=== PATIENT | female | born 1930 | race Caucasian/White ===

== ENCOUNTER 2018-02-28 11:08 | Inpatient (IN) | payer OTHER ==
[2018-02-28 11:20] VITALS: BMI 22.1
--- NOTE | 2018-02-28 12:24 | PDOC ---
History of Present Illness - General Chief Complaint: Respiratory Stated Complaint: RESPIRATORY Time Seen by Provider: 02/28/18 11:39 - History of Present Illness Initial Comments: 02/28/18 13:03 87 year old female with a PMH of HTN, HLD presents to our ED c/o 1 week h/o productive (whitish sputum) cough, chest tightness, dyspnea on exertion as well as subjective fevers/chills. Patient notes she was evaluated by her PMD, Dr. Han, two weeks previous at which time she was treated for a viral URI as well as a UTI. Patient states she was treated with Bactrim for the UTI however cannot recall the name of the antibiotic she was prescribed for the URI. Patient notes she completed the entire antibiotic course of both medications. ROS is positive for decreased PO intake over the last 2 weeks as well as B/L foot swelling Past History - Past Medical History Allergies/Adverse Reactions: Allergies Allergy/AdvReac Type Severity Reaction Status Date / Time Sulfa (Sulfonamide Allergy Verified 02/28/18 11:13 Antibiotics) sulfa Allergy Uncoded 02/28/18 11:13 Home Medications: Ambulatory Orders Acetaminophen [Tylenol .Extra-Strength -] 500 mg PO Q6H PRN 02/17/15 Cholecalciferol (Vitamin D3) [Vitamin D] 1,000 unit PO DAILY 02/17/15 Simvastatin 10 mg PO DAILY 02/17/15 Verapamil HCl [Verapamil ER] 240 mg PO DAILY 02/17/15 Losartan Potassium [Cozaar -] 50 mg PO DAILY 02/28/18 Montelukast Sodium [Singulair] 10 mg PO HS 02/28/18 COPD: No HTN: Yes Hypercholesterolemia: Yes Kidney Stones: Yes (lithotripsy) - Suicide/Smoking/Psychosocial Hx Smoking History: Never smoked Hx Alcohol Use: No Substance Use Type: None Review of Systems - Review of Systems Constitutional: No: Chills, Fever HEENTM: No: Recent change in vision Respiratory: Yes: SOB with Exertion, Productive cough Cardiac (ROS): Yes: Chest Tightness. No: Chest Pain, Edema, Lightheadedness, Palpitations ABD/GI: Yes: Poor Appetite, Poor Fluid Intake. No: Constipated, Diarrhea, Nausea, Vomiting : No: Burning, Dysuria Neurological: No: Headache, Numbness Psychiatric: No: Anxiety, Depression *Physical Exam - Vital Signs Last Vital Signs Temp Pulse Resp BP Pulse Ox 98.6 F 125 H 20 179/95 95 02/28/18 11:13 02/28/18 11:13 02/28/18 11:13 02/28/18 11:13 02/28/18 11:13 - Physical Exam Comments: 02/28/18 19:59 GENERAL: Awake, alert, and fully oriented, in no acute distress HEAD: No signs of trauma EYES: PERRLA, EOMI, sclera anicteric, conjunctiva clear NECK: Nontender, no stepoffs, Normal ROM, supple, no lymphadenopathy, JVD, or masses LUNGS: Breath sounds equal, clear to auscultation bilaterally, however overall decreased No wheezes, and no crackles HEART: Regular rate and rhythm, normal S1 and S2, no murmurs, rubs or gallops ABDOMEN: Soft, nontender, normoactive bowel sounds. No guarding, no rebound. No masses EXTREMITIES: B/L 2+ pedal edema; 2+ pedal pulses, No clubbing or cyanosis. No cords, erythema, or tenderness NEUROLOGICAL: Cranial nerves II through XII intact. SKIN: Warm, Dry, normal turgor, no rashes or lesions noted. ED Treatment Course - LABORATORY CBC & Chemistry Diagram: 02/28/18 12:25 02/28/18 12:25 Medical Decision Making - Medical Decision Making 02/28/18 13:28 87 year old female with volume overload on physical exam presents with chest tightness and exertional dyspnea. Tachycardic and Hypoxic @ presentation. DDx includes CHF, r/o ACS, PNA, PE. Will obtain basic labs, Troponin, BNP, CXR. 02/28/18 13:29 BNP 845. Patient breathing comfortably on 2 L NC - repeat VS @ bedside: SpO2 100% on 2L NC. HR 104, BP 139/99. ECG shows NSR HR 106, no deviations, normal intervals, no BERNARD/STD, some downsloping T segments in V2 - c/w ECG in 2014 - overall non-ischemic ECG 02/28/18 13:32 Wet read of CXR shows B/L pleural effusions -- will confirm with U/S Bedside U/S shows B/L pleural effusions + air brochgrams @ base 02/28/18 14:08 Patient likely has new onset CHF -- will require further evaluation including COLIN. Dr. Han (PMD) paged for admission. Patient and patient's son @ counseled on POC. 02/28/18 14:12 Case d/w Dr. Han - agrees that hypoxia, tachycardia likely 2/2 to pleural effusions, less likely PE. Will continue to monitor - 20 IV Lasix + Promethazine for cough. SpO2 98-100% on 2L NC, HR 96. Will continue to monitor while in ED. 02/28/18 19:56 Patient transferred to inpatient medicine floor. *DC/Admit/Observation/Transfer Diagnosis at time of Disposition: Shortness of breath - Discharge Dispostion Condition at time of disposition: Fair Admit: Yes - Referrals - Patient Instructions - Post Discharge Activity
[2018-02-28 12:29] LABS: BASO % 0.5 % (0-2.0); EOS % 0.2 % (0-4.5); HEMATOCRIT 42.5 % (32.4-45.2); HEMOGLOBIN 14.1 GM/dL (10.7-15.3); LYMPH % 5.3 % (8-40); MCH 32.8 pg (25.7-33.7); MCHC 33.3 g/dl (32.0-36.0); MEAN CELL VOLUME 98.4 fl (80-96); MEAN PLT VOLUME 9.1 fl (7.5-11.1); PLATELET COUNT 381 K/MM3 (134-434); RBC 4.31 M/mm3 (3.60-5.2); RDW 13.9 % (11.6-15.6); WHITE BLOOD COUNT 10.7 K/mm3 (4.0-10.0)
[2018-02-28 12:56] LABS: ALBUMIN 3.4 g/dl (3.4-5.0); ANION GAP 8 (8-16); BILIRUBIN,TOTAL 0.3 mg/dL (0.2-1.0); BLOOD UREA NITROGEN 17 mg/dL (7-18); CALCIUM 8.9 mg/dL (8.5-10.1); CHLORIDE 104 mmol/L (98-107); CO2 28 mmol/L (21-32); CREATININE 0.9 mg/dL (0.55-1.02); GLUCOSE,RANDOM 113 mg/dL (74-106); POTASSIUM 4.4 mmol/L (3.5-5.1); SGOT/AST 41 U/L (15-37); SODIUM 140 mmol/L (136-145); TOT PROT 7.1 g/dl (6.4-8.2)
[2018-02-28 13:09] LABS: ALK PHOS 93 U/L (45-117); N-TERMINAL BNP 865.24 pg/ml (5-450); SGPT/ALT 26 U/L (12-78)
--- NOTE | 2018-02-28 13:30 | PDOC ---
Attending Attestation - Resident Resident Name: Laila Chowdhuryica - ED Attending Attestation I have performed the following: I have examined & evaluated the patient, The case was reviewed & discussed with the resident, I agree w/resident's findings & plan - HPI HPI: 02/28/18 13:26 87-year-old female with history of hypertension presents with about 7-10 days of progressive shortness of breath, orthopnea, cough with white sputum, and foot swelling. Patient previously had URI about 2 weeks ago treated with a Z- Shailesh by Dr. Han, her respiratory symptoms improved temporarily but then the above constellation of symptoms began. Admits to some chest tightness, no fevers or chills. - Physicial Exam PE: 02/28/18 13:27 Tachycardia, O2 sat low on room air, improves on oxygen Well-appearing elderly woman seated in stretcher, speaking full sentences No JVD Lungs are overall clear, question slightly decreased breath sounds at the right base Abdomen benign Positive bilateral edema to the ankles - Medical Decision Making 02/28/18 13:28 Patient seen and evaluated with the resident. I agree with the overall evaluation, assessment, and management with the following summary of visit: 87-year-old female with evidence of volume overload over the last week with intermittent chest pain, all following recent URI. Presentation seems most concerning for CHF exacerbation, rule out superimposed pulmonary/infectious pathology, PE is on the differential. Labs, urinalysis Chest x-ray, EKG Admission for further cardiac workup Heart Score/ECG Review #1 ECG reviewed & interpreted by me at: 11:45 General ECG Interpretation: Sinus Rhythm, Normal Rate (106), Normal Intervals ( qtc 427), No acute ischemic changes (Slightly downsloping in ST segment unchanged from 2015,)
--- NOTE | 2018-02-28 14:10 | PDOC ---
*Physical Exam - Vital Signs Last Vital Signs Temp Pulse Resp BP Pulse Ox 98.6 F 125 H 20 179/95 95 02/28/18 11:13 02/28/18 11:13 02/28/18 11:13 02/28/18 11:13 02/28/18 11:13 ED Treatment Course - LABORATORY CBC & Chemistry Diagram: 02/28/18 12:25 02/28/18 12:25 - ADDITIONAL ORDERS Additional order review: Laboratory Results 02/28/18 12:25 Sodium 140 Potassium 4.4 Chloride 104 Carbon Dioxide 28 Anion Gap 8 BUN 17 Creatinine 0.9 Creat Clearance w eGFR 59.23 Random Glucose 113 H Calcium 8.9 Magnesium 2.0 Total Bilirubin 0.3 D AST 41 H ALT 26 Alkaline Phosphatase 93 Creatine Kinase 300 H Troponin I < 0.02 B-Natriuretic Peptide 865.24 H Total Protein 7.1 Albumin 3.4 02/28/18 12:25 RBC 4.31 MCV 98.4 H MCHC 33.3 RDW 13.9 MPV 9.1 Neutrophils % 87.0 H Lymphocytes % 5.3 L Monocytes % 7.0 Eosinophils % 0.2 Basophils % 0.5 Medical Decision Making - Medical Decision Making 02/28/18 14:03 focused eD ultrasound performed, ED cardiac ultrasound indication : sob no pericardial effusion noted, overall good contractility, no global wall motion abnormalities, noted LV hypertrophy. bilateral lungs scanned with linear and curvilinear probe, bilateral plueral effusions, B lines anteriorly impression: no pericardial effusion, good contractility, bilateral plueral effusions focused ED ultrasound bilateral lower extremities, r/o dvt indication: leg swelling bilateral legs scanned from common femoral past bifurcation into superficial and deep femoral, and popliteal vein past trifurcation. no noted thrombus, full compression at all sites. impression: no proximal DVT bilateral lower extremities. for persistant swelling should have repeat ultrasound in 5 - 7 days. cirilli *DC/Admit/Observation/Transfer - Referrals Referrals: Dominic Han MD [Primary Care Provider] - - Patient Instructions - Post Discharge Activity
[2018-02-28] MEDS ORDERED: FUROSEMIDE 40 MG/4 ML INJECTABLE VIAL IVPUSH ONE (14:37)
[2018-02-28] MEDS ORDERED: FUROSEMIDE 40 MG/4 ML INJECTABLE VIAL ONE (15:03)
[2018-02-28 15:20] LABS: URINE APPEARANCE CLEAR; URINE BILIRUBIN NEGATIVE (<2.0 mg/dL); URINE BLOOD 1+ (NEGATIVE); URINE COLOR YELLOW; URINE GLUCOSE (UA) NEGATIVE (NEGATIVE); URINE KETONE NEGATIVE (NEGATIVE); URINE LEUK ESTERASE NEGATIVE (NEGATIVE); URINE NITRITE NEGATIVE (NEGATIVE); URINE UROBILINOGEN NEGATIVE mg/dL (0.2-1.0)
[2018-02-28 16:08] LABS: URINE PROTEIN 1+ (NEGATIVE)
[2018-02-28 16:11] LABS: EPI CELLS RARE /HPF (FEW); URINE BACTERIA RARE /hpf (NONE SEEN); URINE CASTS 1 /hpf
--- NOTE | 2018-02-28 18:50 | HP ---
Admitting History and Physical - Primary Care Physician PCP: Dominic Han - Admission Chief Complaint: breathing difficulties History of Present Illness: 87 year old female with a PMH of HTN, Lipidemia who presents to ED c/o 1 week productive (whitish sputum) cough, PND; chest tightness, dyspnea on exertion as well as general malise. She was previously seen approx 2 weeks ago in the office c/o nasal congestion semi-prod cough, not unlike she had in Sep, but the was no dimnished or adventitious breath sounds, or periph edema. She was rx'd Zithromax with improvemnt in about a week's time. The SBP was elevated and the dose of the Losartan was adjusted to from 50mg to 100mg QD.Last week she started to experience a similar bout of respiratory symptoms; but this time noted leg swelling; easy fatigue, loss of appetite; labored breathing. Past History History Source: Patient, Medical Record Limitations to Obtaining History: No Limitations - Past Medical History Cardiovascular: Yes: HTN, Hyperlipdemia Pulmonary: Yes: Bronchitis Renal/: Yes: Renal Calculi, UTI Heme/Onc: Yes: Cancer (old Hx of breast cancer (non active)) Psych: Yes: Anxiety - Past Surgical History Past Surgical History: Yes: Hysterectomy - Smoking History Smoking history: Never smoked - Alcohol/Substance Use Hx Alcohol Use: No History of Substance Use: reports: None - Social History Usual Living Arrangement: Yes: Alone History of Recent Travel: No Home Medications - Allergies Allergies/Adverse Reactions: Allergies Allergy/AdvReac Type Severity Reaction Status Date / Time Sulfa (Sulfonamide Allergy Verified 02/28/18 11:13 Antibiotics) sulfa Allergy Uncoded 02/28/18 11:13 - Home Medications Home Medications: Ambulatory Orders Acetaminophen [Tylenol .Extra-Strength -] 500 mg PO Q6H PRN 02/17/15 Cholecalciferol (Vitamin D3) [Vitamin D] 1,000 unit PO DAILY 02/17/15 Simvastatin 10 mg PO DAILY 02/17/15 Verapamil HCl [Verapamil ER] 240 mg PO DAILY 02/17/15 Losartan Potassium [Cozaar -] 50 mg PO DAILY 02/28/18 Montelukast Sodium [Singulair] 10 mg PO HS 02/28/18 Family Disease History - Family Disease History Family History: Unremarkable Review of Systems - Review of Systems Constitutional: reports: Chills, Lethargy, Loss of Appetite, Malaise, Weakness Eyes: reports: No Symptoms HENT: reports: No Symptoms Neck: reports: No Symptoms Cardiovascular: reports: Shortness of Breath Respiratory: reports: PND Gastrointestinal: reports: No Symptoms Genitourinary: reports: No Symptoms Breasts: reports: No Symptoms Reported Musculoskeletal: reports: No Symptoms Integumentary: reports: No Symptoms Neurological: reports: No Symptoms Endocrine: reports: No Symptoms Hematology/Lymphatic: reports: No Symptoms Psychiatric: reports: Anxiety Physical Examination Vital Signs: Vital Signs Temperature 98.5 F 02/28/18 17:30 Pulse Rate 98 H 02/28/18 17:30 Respiratory Rate 18 02/28/18 17:30 Blood Pressure 149/74 02/28/18 17:30 O2 Sat by Pulse Oximetry (%) 98 02/28/18 17:30 Findings/Remarks: skin--scattered keratosis head--NC eyes--bilat lid edema oral--no droop; NL mucosa neck--no masses lungs--diminshed BS at bases heart--RR breasts--old scar; no masses noted abd--old surg incision; soft, NT, ND ext--2+ bilat edema; no ischemic changes neuro--alert; coherent anxious, speech is fluent and thoughts well organized; no focal deficits Labs: CBC, BMP 02/28/18 12:25 02/28/18 12:25 Laboratory Tests 02/28/18 02/28/18 02/28/18 12:25 12:25 15:10 WBC 10.7 H RBC 4.31 Hgb 14.1 Hct 42.5 MCV 98.4 H MCH 32.8 MCHC 33.3 RDW 13.9 Plt Count 381 D MPV 9.1 Neutrophils % 87.0 H Lymphocytes % 5.3 L Monocytes % 7.0 Eosinophils % 0.2 Basophils % 0.5 Sodium 140 Potassium 4.4 Chloride 104 Carbon Dioxide 28 Anion Gap 8 BUN 17 Creatinine 0.9 Creat Clearance w eGFR 59.23 Random Glucose 113 H Calcium 8.9 Magnesium 2.0 Total Bilirubin 0.3 D AST 41 H ALT 26 Alkaline Phosphatase 93 Creatine Kinase 300 H Creatine Kinase Index 2.2 CK-MB (CK-2) 6.756 H Troponin I < 0.02 B-Natriuretic Peptide 865.24 H Total Protein 7.1 Albumin 3.4 Urine Color Yellow Urine Appearance Clear Urine pH 5.0 Ur Specific [place] 1.016 Urine Protein 1+ H Urine Glucose (UA) Negative Urine Ketones Negative Urine Blood 1+ H Urine Nitrite Negative Urine Bilirubin Negative Urine Urobilinogen Negative Ur Leukocyte Esterase Negative Urine WBC (Auto) 3 Urine RBC (Auto) 17 Ur Epithelial Cells Rare Urine Bacteria Rare Urine Casts 1 Imaging - Results Chest X-ray: Report Reviewed EKG: Report Reviewed Problem List - Problems (1) CHF (congestive heart failure) Assessment/Plan: of relatively sudden onset (1 week's time) as per fluid build up/vol over load. Now ith high Trop as well. PLAN: cont BP control; may need BB; Lasix; cardio eval; CKs Code(s): I50.9 - HEART FAILURE, UNSPECIFIED Qualifiers: Heart failure type: combined systolic and diastolic Heart failure chronicity: acute Qualified Code(s): I50.41 - Acute combined systolic ( congestive) and diastolic (congestive) heart failure (2) Hypertension Assessment/Plan: fluctuating BPs in the past; was controlled on Verap; ARB, until this year when the ARB dose has had to be increased Code(s): I10 - ESSENTIAL (PRIMARY) HYPERTENSION Qualifiers: Hypertension type: unspecified Qualified Code(s): I10 - Essential (primary ) hypertension (3) Personal history UTI Assessment/Plan: UA does not suggest UTI at this time Code(s): Z87.440 - PERSONAL HISTORY OF URINARY (TRACT) INFECTIONS (4) History of environmental allergies Assessment/Plan: which produce a myriad of nasal sx at various times of the year. Code(s): Z91.09 - OTH ALLERGY STATUS, OTH THAN TO DRUGS AND BIOLG SUBSTANCES (5) Osteoporosis Assessment/Plan: had been on a Biphosp agent Code(s): M81.0 - AGE-RELATED OSTEOPOROSIS W/O CURRENT PATHOLOGICAL FRACTURE Qualifiers: Osteoporosis type: age-related (6) History of kidney stones Assessment/Plan: stable at present Code(s): Z87.442 - PERSONAL HISTORY OF URINARY CALCULI (7) Lipidemia Assessment/Plan: controlled with statin Code(s): E78.5 - HYPERLIPIDEMIA, UNSPECIFIED Qualifiers: Hyperlipidemia type: unspecified Qualified Code(s): E78.5 - Hyperlipidemia , unspecified (8) Anxiety Assessment/Plan: mixed; chronic Code(s): F41.9 - ANXIETY DISORDER, UNSPECIFIED Assessment/Plan 87 y/o with new onset CHF; with NL TNI, who will need cardiac eval and restructure of regimen as well as cardiac w/u ~~~~~~~~~~~~~~~~~~~ Dr Han
--- NOTE | 2018-02-28 19:13 | CON.CARD ---
Consult Consult Specialty:: cardiology - History of Present Illness Chief Complaint: PT A&Ox3; anxioius; c/o headache and "congestion" (phlegm; swallowing wih difficulty) History of Present Illness: 87 year old fwhite og (b. Ranjit) with a PMH of HTN, HLD, presents to our ED c/o 1 week h/o productive (whitish sputum) cough, chest tightness, dyspnea on exertion as well as subjective fevers/chills. Patient notes she was evaluated by her PMD, Dr. Han, two weeks previous at which time she was treated for a viral URI as well as a UTI. Patient states she was treated with Bactrim for the UTI however cannot recall the name of the antibiotic she was prescribed for the URI. Patient notes she completed the entire antibiotic course of both medications. ROS is positive for decreased PO intake over the last 2 weeks as well as B/L foot swelling Pt says she never had leg swelling before. - History Source History Provided By: Patient, Medical Record Limitations to Obtaining History: No Limitations - Past Medical History Cardio/Vascular: Yes: HTN, Hyperlipdemia Pulmonary: Yes: Bronchitis Renal/: Yes: Renal Calculi, UTI Reproductive: Yes: Postmenopausal ...: No Psych: Yes: Anxiety - Past Surgical History Past Surgical History: Yes: Hysterectomy - Alcohol/Substance Use Hx Alcohol Use: No History of Substance Use: reports: None - Smoking History Smoking history: Never smoked - Social History History of Recent Travel: No Home Medications - Allergies Allergies/Adverse Reactions: Allergies Allergy/AdvReac Type Severity Reaction Status Date / Time Sulfa (Sulfonamide Allergy Verified 02/28/18 11:13 Antibiotics) sulfa Allergy Uncoded 02/28/18 11:13 - Home Medications Home Medications: Ambulatory Orders Acetaminophen [Tylenol .Extra-Strength -] 500 mg PO Q6H PRN 02/17/15 Cholecalciferol (Vitamin D3) [Vitamin D] 1,000 unit PO DAILY 02/17/15 Simvastatin 10 mg PO DAILY 02/17/15 Verapamil HCl [Verapamil ER] 240 mg PO DAILY 02/17/15 Losartan Potassium [Cozaar -] 50 mg PO DAILY 02/28/18 Montelukast Sodium [Singulair] 10 mg PO HS 02/28/18 Family Disease History - Family Disease History Family History: Denies Review of Systems - Review of Systems Constitutional: reports: Weakness Eyes: reports: No Symptoms HENT: reports: No Symptoms Neck: reports: No Symptoms Cardiovascular: reports: Chest Pain (sharp; occurs when coughs or has trouble swallowing lately), Shortness of Breath Respiratory: reports: Cough, SOB Gastrointestinal: reports: No Symptoms Genitourinary: reports: No Symptoms Breasts: reports: No Symptoms Reported Musculoskeletal: reports: No Symptoms Integumentary: reports: No Symptoms Neurological: reports: No Symptoms Endocrine: reports: No Symptoms Hematology/Lymphatic: reports: No Symptoms Psychiatric: reports: Anxiety - Risk Factors Known Risk Factors: Yes: Age, Hypercholesterolemia, Hypertension Vital Signs: Vital Signs Temperature 98.5 F 02/28/18 17:30 Pulse Rate 98 H 02/28/18 17:30 Respiratory Rate 18 02/28/18 17:30 Blood Pressure 149/74 02/28/18 17:30 O2 Sat by Pulse Oximetry (%) 98 02/28/18 17:30 Constitutional: Yes: Anxious Eyes: Yes: WNL HENT: Yes: WNL Neck: Yes: WNL Respiratory: Yes: Diminished, Rales, SOB Gastrointestinal: Yes: Soft Renal/: No: Anuria Cardiovascular: Yes: Regular Rate and Rhythm JVD: Yes Carotid Bruit: No PMI: Non-Displaced Heart Sounds: Yes: S1, Split S2 Murmur: Yes: Systolic Murmur, Grade 2 Musculoskeletal: Yes: Muscle Weakness Extremities: Yes: Cool Edema: Yes Edema: LLE: 1+, RLE: 1+ Peripheral Pulses WNL: Yes Integumentary: Yes: WNL Neurological: Yes: Alert, Oriented, Weakness Psychiatric: Yes: Other - Other Data Labs, Other Data: CBC, BMP 02/28/18 12:25 02/28/18 12:25 Troponin, BNP 02/28/18 12:25 Troponin I < 0.02 B-Natriuretic Peptide 865.24 H Troponin, BNP 02/28/18 12:25 Troponin I < 0.02 B-Natriuretic Peptide 865.24 H Imaging - Results Chest X-ray: Image Reviewed (CHF) EKG: Image Reviewed (NSR; nonspecific T wave changes) Problem List - Problems (1) Anxiety Code(s): F41.9 - ANXIETY DISORDER, UNSPECIFIED (2) CHF (congestive heart failure) Assessment/Plan: BNP elevated. + JVD; diminished BS both bases; +bilateral rales. CXR: CHF REC: 'ECHO for LVEF restart losartan (25 mg daily). furosemide IVP F/u BUN/Cr, electrolytes, daily wt, Is and Os. Code(s): I50.9 - HEART FAILURE, UNSPECIFIED Qualifiers: Heart failure type: combined systolic and diastolic Heart failure chronicity: acute Qualified Code(s): I50.41 - Acute combined systolic ( congestive) and diastolic (congestive) heart failure (3) Hypertension Assessment/Plan: f/u serially; losartan restarted; also on furosemide presently. Code(s): I10 - ESSENTIAL (PRIMARY) HYPERTENSION Qualifiers: Hypertension type: unspecified Qualified Code(s): I10 - Essential (primary ) hypertension (4) Shortness of breath Code(s): R06.02 - SHORTNESS OF BREATH (5) Leukocytosis Assessment/Plan: f/u blood and urine c/s. Code(s): D72.829 - ELEVATED WHITE BLOOD CELL COUNT, UNSPECIFIED
[2018-02-28] MEDS ORDERED: LOSARTAN POTASSIUM 25 MG TABLET PO SCH (20:15)
[2018-02-28] MEDS ORDERED: ACETAMINOPHEN 325 MG TABLET (FP) PO ONE (20:30)
[2018-02-28] MEDS: guaiFENesin 200 MG/10 ML 10 ML UNIT-DOSE CUPS PO PRN (22:17)
[2018-03-01] MEDS: guaiFENesin 200 MG/10 ML 10 ML UNIT-DOSE CUPS PO PRN ×2 (05:30→20:50)
[2018-03-01 07:03] LABS: CHLORIDE 102 mmol/L (98-107); POTASSIUM 3.6 mmol/L (3.5-5.1); SODIUM 139 mmol/L (136-145)
[2018-03-01 07:30] LABS: ANION GAP 8 (8-16); BLOOD UREA NITROGEN 13 mg/dL (7-18); CALCIUM 8.2 mg/dL (8.5-10.1); CHOLESTEROL 135 mg/dL (50-200); CO2 29 mmol/L (21-32); CREATININE 0.7 mg/dL (0.55-1.02); GLUCOSE,RANDOM 88 mg/dL (74-106); HDL CHOLESTEROL 69 mg/dL (40-60); LDL CHOLESTEROL (ONLY SJRH) 63 mg/dL (5-100); TRIGLYCERIDES 82 mg/dL (35-160)
[2018-03-01] MEDS ORDERED: VALSARTAN 160 MG TABLET (UD) PO ONE (10:30)
[2018-03-01] MEDS: ENOXAPARIN NA (PORCINE) 40 MG/0.4 ML DISP.SYRIN SQ SCH (10:45)
[2018-03-01] MEDS: FUROSEMIDE 40 MG/4 ML INJECTABLE VIAL IVPUSH SCH (10:45)
--- NOTE | 2018-03-01 11:02 | PN ---
Progress Note, Physician History of Present Illness: 87 [facility]white [facility] with a PMH of HTN, HLD, presents to our ED c/o 1 week h/o productive (whitish sputum) cough, chest tightness, dyspnea on exertion as well as subjective fevers/chills. Patient notes she was evaluated by her PMD, Dr. Han, two weeks previous at which time she was treated for a viral URI as well as a UTI. Patient states she was treated with Bactrim for the UTI however cannot recall the name of the antibiotic she was prescribed for the URI. Patient notes she completed the entire antibiotic course of both medications. ROS is positive for decreased PO intake over the last 2 weeks as well as B/L foot swelling Pt says she never had leg swelling before. - Current Medication List Current Medications: Active Medications Enoxaparin Sodium (Lovenox -) 40 mg SQ DAILY [facility] Last Admin: 03/01/18 10:45 Dose: 40 mg Furosemide (Lasix Injection -) 20 mg IVPUSH DAILY [facility] Last Admin: 03/01/18 10:45 Dose: 20 mg Guaifenesin (Robitussin -) 10 ml PO Q6H PRN PRN Reason: COUGH Last Admin: 03/01/18 05:30 Dose: 10 ml - Objective Vital Signs: Vital Signs Temperature 98.9 F 03/01/18 10:00 Pulse Rate 96 H 03/01/18 10:00 Respiratory Rate 20 03/01/18 10:00 Blood Pressure 169/89 03/01/18 10:00 O2 Sat by Pulse Oximetry (%) 96 03/01/18 00:41 Eyes: Yes: WNL, Conjunctiva Clear, EOM Intact HENT: Yes: WNL, Atraumatic, Normocephalic Neck: Yes: WNL, Supple, Trachea Midline Cardiovascular: Yes: WNL, Regular Rate and Rhythm Respiratory: Yes: WNL, Regular, Diminished Gastrointestinal: Yes: WNL, Normal Bowel Sounds Genitourinary: Yes: WNL Musculoskeletal: Yes: WNL Extremities: Yes: WNL Edema: No Integumentary: Yes: WNL Neurological: Yes: WNL, Alert, Oriented ...Motor Strength: WNL Psychiatric: Yes: WNL Labs: CBC, BMP 02/28/18 12:25 03/01/18 05:35 Laboratory Tests 02/28/18 02/28/18 02/28/18 12:25 12:25 15:10 WBC 10.7 H RBC 4.31 Hgb 14.1 Hct 42.5 MCV 98.4 H MCH 32.8 MCHC 33.3 RDW 13.9 Plt Count 381 D MPV 9.1 Neutrophils % 87.0 H Lymphocytes % 5.3 L Monocytes % 7.0 Eosinophils % 0.2 Basophils % 0.5 Sodium 140 Potassium 4.4 Chloride 104 Carbon Dioxide 28 Anion Gap 8 BUN 17 Creatinine 0.9 Creat Clearance w eGFR 59.23 Random Glucose 113 H Calcium 8.9 Magnesium 2.0 Total Bilirubin 0.3 D AST 41 H ALT 26 Alkaline Phosphatase 93 Creatine Kinase 300 H Creatine Kinase Index 2.2 CK-MB (CK-2) 6.756 H Troponin I < 0.02 B-Natriuretic Peptide 865.24 H Total Protein 7.1 Albumin 3.4 Triglycerides Cholesterol Total LDL Cholesterol HDL Cholesterol TSH Urine Color Yellow Urine Appearance Clear Urine pH 5.0 Ur Specific [place] 1.016 Urine Protein 1+ H Urine Glucose (UA) Negative Urine Ketones Negative Urine Blood 1+ H Urine Nitrite Negative Urine Bilirubin Negative Urine Urobilinogen Negative Ur Leukocyte Esterase Negative Urine WBC (Auto) 3 Urine RBC (Auto) 17 Ur Epithelial Cells Rare Urine Bacteria Rare Urine Casts 1 02/28/18 03/01/18 03/01/18 21:00 05:35 05:35 WBC RBC Hgb Hct MCV MCH MCHC RDW Plt Count MPV Neutrophils % Lymphocytes % Monocytes % Eosinophils % Basophils % Sodium 139 Potassium 3.6 Chloride 102 Carbon Dioxide 29 Anion Gap 8 BUN 13 Creatinine 0.7 Creat Clearance w eGFR Random Glucose 88 Calcium 8.2 L Magnesium Total Bilirubin AST ALT Alkaline Phosphatase Creatine Kinase 347 H 332 H Cancelled Creatine Kinase Index 1.9 CK-MB (CK-2) 6.594 H Troponin I 0.02 0.02 Cancelled B-Natriuretic Peptide Total Protein Albumin Triglycerides 82 Cholesterol 135 Total LDL Cholesterol 63 HDL Cholesterol 69 H TSH 0.96 Urine Color Urine Appearance Urine pH Ur Specific [place] Urine Protein Urine Glucose (UA) Urine Ketones Urine Blood Urine Nitrite Urine Bilirubin Urine Urobilinogen Ur Leukocyte Esterase Urine WBC (Auto) Urine RBC (Auto) Ur Epithelial Cells Urine Bacteria Urine Casts Assessment/Plan - Problems (1) Anxiety Code(s): F41.9 - ANXIETY DISORDER, UNSPECIFIED (2) CHF (congestive heart failure) Assessment/Plan: BNP elevated. CXR: CHF REC: 'ECHO for LVEF restart losartan (25 mg daily). furosemide IVP F/u BUN/Cr, electrolytes, daily wt, Is and Os. Code(s): I50.9 - HEART FAILURE, UNSPECIFIED Qualifiers: Heart failure type: combined systolic and diastolic Heart failure chronicity: acute Qualified Code(s): I50.41 - Acute combined systolic ( congestive) and diastolic (congestive) heart failure (3) Hypertension Assessment/Plan: f/u serially; losartan restarted; also on furosemide presently. Code(s): I10 - ESSENTIAL (PRIMARY) HYPERTENSION Qualifiers: Hypertension type: unspecified Qualified Code(s): I10 - Essential (primary ) hypertension (4) Shortness of breath Code(s): R06.02 - SHORTNESS OF BREATH (5) Leukocytosis Assessment/Plan: f/u blood and urine c/s. Code(s): D72.829 - ELEVATED WHITE BLOOD CELL COUNT, UNSPECIFIED
--- NOTE | 2018-03-01 11:37 | EKG ---
Test Reason : Blood Pressure : / mmHG Vent. Rate : 096 BPM Atrial Rate : 096 BPM P-R Int : 106 ms QRS Dur : 086 ms QT Int : 354 ms P-R-T Axes : 064 018 035 degrees QTc Int : 447 ms SINUS RHYTHM WITH SINUS ARRHYTHMIA WITH SHORT WI OTHERWISE NORMAL ECG WHEN COMPARED WITH ECG OF 28-FEB-2018 11:45, NO SIGNIFICANT CHANGE WAS FOUND Confirmed by LEE ESPINOZA, REYNA ([id number]) on 03/01/2018 11:37:32 AM Referred By: Marium WILSON Confirmed By:REYNA HOWARD MD
--- NOTE | 2018-03-01 12:09 | PN ---
Progress Note (short form) - Note Progress Note: medical Active Medications Enoxaparin Sodium (Lovenox -) 40 mg SQ DAILY [facility] Last Admin: 03/01/18 10:45 Dose: 40 mg Furosemide (Lasix Injection -) 20 mg IVPUSH DAILY [facility] Last Admin: 03/01/18 10:45 Dose: 20 mg Guaifenesin (Robitussin -) 10 ml PO Q6H PRN PRN Reason: COUGH Last Admin: 03/01/18 05:30 Dose: 10 ml Laboratory Results - last 24 hr 02/28/18 02/28/18 02/28/18 12:25 12:25 15:10 WBC 10.7 H RBC 4.31 Hgb 14.1 Hct 42.5 MCV 98.4 H MCH 32.8 MCHC 33.3 RDW 13.9 Plt Count 381 D MPV 9.1 Neutrophils % 87.0 H Lymphocytes % 5.3 L Monocytes % 7.0 Eosinophils % 0.2 Basophils % 0.5 Sodium 140 Potassium 4.4 Chloride 104 Carbon Dioxide 28 Anion Gap 8 BUN 17 Creatinine 0.9 Creat Clearance w eGFR 59.23 Random Glucose 113 H Calcium 8.9 Magnesium 2.0 Total Bilirubin 0.3 D AST 41 H ALT 26 Alkaline Phosphatase 93 Creatine Kinase 300 H Creatine Kinase Index 2.2 CK-MB (CK-2) 6.756 H Troponin I < 0.02 B-Natriuretic Peptide 865.24 H Total Protein 7.1 Albumin 3.4 Triglycerides Cholesterol Total LDL Cholesterol HDL Cholesterol TSH Urine Color Yellow Urine Appearance Clear Urine pH 5.0 Ur Specific [place] 1.016 Urine Protein 1+ H Urine Glucose (UA) Negative Urine Ketones Negative Urine Blood 1+ H Urine Nitrite Negative Urine Bilirubin Negative Urine Urobilinogen Negative Ur Leukocyte Esterase Negative Urine WBC (Auto) 3 Urine RBC (Auto) 17 Ur Epithelial Cells Rare Urine Bacteria Rare Urine Casts 1 02/28/18 03/01/18 03/01/18 21:00 05:35 05:35 WBC RBC Hgb Hct MCV MCH MCHC RDW Plt Count MPV Neutrophils % Lymphocytes % Monocytes % Eosinophils % Basophils % Sodium 139 Potassium 3.6 Chloride 102 Carbon Dioxide 29 Anion Gap 8 BUN 13 Creatinine 0.7 Creat Clearance w eGFR Random Glucose 88 Calcium 8.2 L Magnesium Total Bilirubin AST ALT Alkaline Phosphatase Creatine Kinase 347 H 332 H Cancelled Creatine Kinase Index 1.9 CK-MB (CK-2) 6.594 H Troponin I 0.02 0.02 Cancelled B-Natriuretic Peptide Total Protein Albumin Triglycerides 82 Cholesterol 135 Total LDL Cholesterol 63 HDL Cholesterol 69 H TSH 0.96 Urine Color Urine Appearance Urine pH Ur Specific [place] Urine Protein Urine Glucose (UA) Urine Ketones Urine Blood Urine Nitrite Urine Bilirubin Urine Urobilinogen Ur Leukocyte Esterase Urine WBC (Auto) Urine RBC (Auto) Ur Epithelial Cells Urine Bacteria Urine Casts Vital Signs Temperature 98.9 F 03/01/18 10:00 Pulse Rate 96 H 03/01/18 10:00 Respiratory Rate 20 03/01/18 10:00 Blood Pressure 169/89 03/01/18 10:00 O2 Sat by Pulse Oximetry (%) 96 03/01/18 08:41 CC: incontinence of urine, no CP; SOB `````````````````````````````````` skin--no cyanosis lungs--better aeration heart--RR ext--1+ edema neuro--alert, anxious, coherent; no deficits ```````````````````````````````````` Summ > Htn w/ ASHD & CHF--Renal funct okay; on Lasix; have changed ARB to Valsartan as the Losartan was not effective in controlling her BP at 100mg Qd, TSH, : Lipids okay, CK still up; PLAn; cont Low dose Lasix; await echo; may need BB; hold the CCB > Anxiety--chronic; overly pre-occupied; will consider using anxiolytic ~~~~~~~~~~~~~~~~~~~~~~~~~ Dr Han Problem List - Problems (1) CHF (congestive heart failure) Code(s): I50.9 - HEART FAILURE, UNSPECIFIED Qualifiers: Heart failure type: combined systolic and diastolic Heart failure chronicity: acute Qualified Code(s): I50.41 - Acute combined systolic ( congestive) and diastolic (congestive) heart failure (2) Hypertension Code(s): I10 - ESSENTIAL (PRIMARY) HYPERTENSION Qualifiers: Hypertension type: unspecified Qualified Code(s): I10 - Essential (primary ) hypertension (3) Personal history UTI Code(s): Z87.440 - PERSONAL HISTORY OF URINARY (TRACT) INFECTIONS (4) History of environmental allergies Code(s): Z91.09 - OTH ALLERGY STATUS, OTH THAN TO DRUGS AND BIOLG SUBSTANCES (5) Osteoporosis Code(s): M81.0 - AGE-RELATED OSTEOPOROSIS W/O CURRENT PATHOLOGICAL FRACTURE Qualifiers: Osteoporosis type: age-related (6) History of kidney stones Code(s): Z87.442 - PERSONAL HISTORY OF URINARY CALCULI (7) Lipidemia Code(s): E78.5 - HYPERLIPIDEMIA, UNSPECIFIED Qualifiers: Hyperlipidemia type: unspecified Qualified Code(s): E78.5 - Hyperlipidemia , unspecified (8) Anxiety Code(s): F41.9 - ANXIETY DISORDER, UNSPECIFIED
--- NOTE | 2018-03-01 13:21 | EKG ---
Test Reason : Blood Pressure : / mmHG Vent. Rate : 106 BPM Atrial Rate : 106 BPM P-R Int : 114 ms QRS Dur : 086 ms QT Int : 322 ms P-R-T Axes : 064 019 015 degrees QTc Int : 427 ms POOR DATA QUALITY, INTERPRETATION MAY BE ADVERSELY AFFECTED SINUS TACHYCARDIA POSSIBLE LEFT ATRIAL ENLARGEMENT NONSPECIFIC ST AND T WAVE ABNORMALITY ABNORMAL ECG WHEN COMPARED WITH ECG OF 17-FEB-2015 11:14, NON-SPECIFIC CHANGE IN ST SEGMENT IN ANTERIOR LEADS Confirmed by LEE ESPINOZA, REYNA ([id number]) on 03/01/2018 1:20:52 PM Referred By: Confirmed By:REYNA HOWARD MD
[2018-03-01] MEDS: ACETAMINOPHEN 325 MG TABLET (FP) PO SCH ×2 (20:30→20:50)
[2018-03-01] MEDS ORDERED: metoPROLOL SUCCINATE 25 MG TAB.SR.24H (FP) PO ONE (22:15)
[2018-03-02] MEDS ORDERED: METOPROLOL TARTRATE 5 MG/5 ML VIAL IVPUSH ONE (04:04)
[2018-03-02] MEDS ORDERED: METOPROLOL TARTRATE 5 MG/5 ML VIAL IVPUSH PRN (04:10)
--- NOTE | 2018-03-02 04:10 | RAPID ---
Physical Examination Vital Signs: Vital Signs Temperature 98.2 F 03/02/18 01:47 Pulse Rate 95 H 03/02/18 01:47 Respiratory Rate 20 03/02/18 01:47 Blood Pressure 180/86 03/02/18 01:47 O2 Sat by Pulse Oximetry (%) 98 03/02/18 00:00 Constitutional: Yes: Calm Eyes: Yes: WNL Neck: Yes: WNL Cardiovascular: Yes: Regular Rate and Rhythm Respiratory: Yes: Wheezes Neurological: Yes: WNL Labs: CBC, BMP 02/28/18 12:25 03/01/18 05:35 Rapid Response - Rapid Response Assessment: Rapid response was called this morning at 4AM. Medicine night team, floor staff at bedside. As per nurse, pt woke up from a nap and told her that she was not feeling well. Immediately after, she was noted to have slurred speech. During evaluation, pt c/o throat pain and nausea. Denies headache or motor neurological deficits. Once team arrived, pt no longer with slurring and speaking "at baseline." Vitals 201/129 93HR RR 15 97% 02 sat RA Recent checks B PE -appointment coordinator 2-12 grossly intact -Without focal neuro deficits Plan -Head CT non-con d/t change in mental status: r/o bleed -Lopressor 5mg IVP x 1 admin stat, BP recheck 199/123 -Morphine 1mg IVP x 1 to assist with breathing -Zofran 4mg x 1 -Lopressor 5mg IVP q4h PRN -Frequent neurochecks q2h to assess for further change in mental status -Aspiration precautions -Head CT: reviewed, without signs of acute hemorrhage - however wait for official report -Discussed with nurse, recent BP 6AM 132/92 Thank you Dahiana Mcpherson MD PGY-1 Night team
[2018-03-02] MEDS ORDERED: morphine SULFATE 4 MG/ML VIAL IVPUSH ONE (04:11)
[2018-03-02] MEDS ORDERED: ONDANSETRON 4 MG/2 ML VIAL IVPUSH ONE (04:14)
[2018-03-02] MEDS: PANTOPRAZOLE SODIUM 40 MG VIAL IVPUSH SCH ×2 (06:07→11:13)
[2018-03-02 08:29] LABS: CHLORIDE 100 mmol/L (98-107); POTASSIUM 3.8 mmol/L (3.5-5.1); SODIUM 140 mmol/L (136-145)
[2018-03-02 08:55] LABS: ANION GAP 13 (8-16); BLOOD UREA NITROGEN 12 mg/dL (7-18); CALCIUM 8.1 mg/dL (8.5-10.1); CO2 27 mmol/L (21-32); CREATININE 0.7 mg/dL (0.55-1.02); GLUCOSE,RANDOM 91 mg/dL (74-106)
[2018-03-02] MEDS: VALSARTAN 160 MG TABLET (UD) PO SCH (11:11)
[2018-03-02] MEDS: METOPROLOL TARTRATE 25 MG TABLET (FP) PO SCH ×2 (11:11→21:46)
[2018-03-02] MEDS: ENOXAPARIN NA (PORCINE) 40 MG/0.4 ML DISP.SYRIN SQ SCH (11:12)
[2018-03-02] MEDS: FUROSEMIDE 40 MG/4 ML INJECTABLE VIAL IVPUSH SCH (11:12)
[2018-03-02] MEDS: ACETAMINOPHEN 325 MG TABLET (FP) PO SCH ×4 (11:14→21:46)
[2018-03-02] MEDS ORDERED: BENZOCAINE/MENTH/CETYLPYRD CL 1 EACH LOZENGE MM PRN (14:07)
--- NOTE | 2018-03-02 14:15 | PN ---
Progress Note (short form) - Note Progress Note: ############### medical note ############ Current Medications Acetaminophen (Tylenol -) 650 mg PO QID [facility] Last Admin: 03/02/18 11:14 Dose: Not Given Benzocaine/Menthol (Cepacol Lozenge -) 1 each MM PRN PRN PRN Reason: SORE THROAT Enoxaparin Sodium (Lovenox -) 40 mg SQ DAILY [facility] Last Admin: 03/02/18 11:12 Dose: 40 mg Furosemide (Lasix Injection -) 40 mg IVPUSH DAILY [facility] Guaifenesin (Robitussin -) 10 ml PO Q6H PRN PRN Reason: COUGH Last Admin: 03/01/18 20:50 Dose: 10 ml Metoprolol Tartrate (Lopressor Injection -) 5 mg IVPUSH Q4H PRN PRN Reason: HYPERTENSION Metoprolol Tartrate (Lopressor -) 25 mg PO BID [facility] Last Admin: 03/02/18 11:11 Dose: 25 mg Pantoprazole Sodium (Protonix Iv) 40 mg IVPUSH DAILY [facility] Last Admin: 03/02/18 11:13 Dose: Not Given Spironolactone (Aldactone -) 25 mg PO ONCE ONE Stop: 03/02/18 14:06 Valsartan (Diovan -) 160 mg PO DAILY [facility] Last Admin: 03/02/18 11:11 Dose: 160 mg Laboratory Results - last 24 hr 03/02/18 03/02/18 04:06 07:00 Sodium 140 Potassium 3.8 Chloride 100 Carbon Dioxide 27 Anion Gap 13 BUN 12 Creatinine 0.7 POC Glucometer 91 Random Glucose 91 Calcium 8.1 L Magnesium 2.0 Vital Signs Temperature 98 F 03/02/18 11:16 Pulse Rate 88 03/02/18 11:16 Respiratory Rate 20 03/02/18 11:16 Blood Pressure 104/68 03/02/18 11:16 O2 Sat by Pulse Oximetry (%) 95 03/02/18 08:00 CC: night time BP rise `````````````````````````````````` skin--rashes lungs--better aeration at bases heart--RR ext--1+ edema neuro--alert, anxious, coherent; no deficits ```````````````````````````````````` CXR: effusions somewhat less than previous `````````````````````````````````````````````` Summ > Htn w/ ASHD & CHF--Renal funct okay; on Lasix; have changed ARB to Valsartan but BP shot up to near 200 at night even after she was given a stat dose of Toprol; head CT did not reveal any ischemic areas to suggest CVA/or bleed. and MS-hadley she is unchanged. Echo does not show any LV dysf; PLAn; cont current ARB ; add Lopressor BID; 1 dose of aldactone today; increase Lasix to 40mg Qd IV in AM > SVT--short burst only; will Rx BB > Sore throat--also c/o ongoing nasal congestion; CT of head does not show any extensive sinus disease; will check throat C&S > Anxiety--chronic; overly pre-occupied; will consider using anxiolytic if nocturnal events continue ~~~~~~~~~~~~~~~~~~~~~~~~~ Dr Han Problem List - Problems (1) CHF (congestive heart failure) Code(s): I50.9 - HEART FAILURE, UNSPECIFIED Qualifiers: Heart failure type: combined systolic and diastolic Heart failure chronicity: acute Qualified Code(s): I50.41 - Acute combined systolic ( congestive) and diastolic (congestive) heart failure (2) Hypertension Code(s): I10 - ESSENTIAL (PRIMARY) HYPERTENSION Qualifiers: Hypertension type: unspecified Qualified Code(s): I10 - Essential (primary ) hypertension (3) Personal history UTI Code(s): Z87.440 - PERSONAL HISTORY OF URINARY (TRACT) INFECTIONS (4) History of environmental allergies Code(s): Z91.09 - OTH ALLERGY STATUS, OTH THAN TO DRUGS AND BIOLG SUBSTANCES (5) Osteoporosis Code(s): M81.0 - AGE-RELATED OSTEOPOROSIS W/O CURRENT PATHOLOGICAL FRACTURE Qualifiers: Osteoporosis type: age-related (6) History of kidney stones Code(s): Z87.442 - PERSONAL HISTORY OF URINARY CALCULI (7) Lipidemia Code(s): E78.5 - HYPERLIPIDEMIA, UNSPECIFIED Qualifiers: Hyperlipidemia type: unspecified Qualified Code(s): E78.5 - Hyperlipidemia , unspecified (8) Anxiety Code(s): F41.9 - ANXIETY DISORDER, UNSPECIFIED
[2018-03-02] MEDS ORDERED: SPIRONOLACTONE 25 MG TABLET (FP) PO ONE (14:30)
--- NOTE | 2018-03-02 18:04 | PN ---
Progress Note, Physician Chief Complaint: Pt alerft; OOB in chair; still with cough, shortness of breath on minimal exertion. History of Present Illness: 87 year old white female (b. Ranjit) with a PMH of HTN, HLD, presents to our ED c/o 1 week h/o productive (whitish sputum) cough, chest tightness, dyspnea on exertion as well as subjective fevers/chills. Patient notes she was evaluated by her PMD, Dr. Han, two weeks previous at which time she was treated for a viral URI as well as a UTI. Patient states she was treated with Bactrim for the UTI however cannot recall the name of the antibiotic she was prescribed for the URI. Patient notes she completed the entire antibiotic course of both medications. ROS is positive for decreased PO intake over the last 2 weeks as well as B/L foot swelling Pt says she never had leg swelling before. - Current Medication List Current Medications: Active Medications Acetaminophen (Tylenol -) 650 mg PO QID [facility] Last Admin: 03/02/18 17:43 Dose: Not Given Benzocaine/Menthol (Cepacol Lozenge -) 1 each MM PRN PRN PRN Reason: SORE THROAT Enoxaparin Sodium (Lovenox -) 40 mg SQ DAILY [facility] Last Admin: 03/02/18 11:12 Dose: 40 mg Furosemide (Lasix Injection -) 40 mg IVPUSH DAILY [facility] Guaifenesin (Robitussin -) 10 ml PO Q6H PRN PRN Reason: COUGH Last Admin: 03/01/18 20:50 Dose: 10 ml Metoprolol Tartrate (Lopressor Injection -) 5 mg IVPUSH Q4H PRN PRN Reason: HYPERTENSION Metoprolol Tartrate (Lopressor -) 25 mg PO BID [facility] Last Admin: 03/02/18 11:11 Dose: 25 mg Pantoprazole Sodium (Protonix Iv) 40 mg IVPUSH DAILY [facility] Last Admin: 03/02/18 11:13 Dose: Not Given Valsartan (Diovan -) 160 mg PO DAILY [facility] Last Admin: 03/02/18 11:11 Dose: 160 mg - Objective Vital Signs: Vital Signs Temperature 97.7 F 03/02/18 14:44 Pulse Rate 85 03/02/18 15:32 Respiratory Rate 20 04/05/18 15:32 Blood Pressure 118/68 03/02/18 15:32 O2 Sat by Pulse Oximetry (%) 95 03/02/18 08:00 Extremities: Yes: Cool Edema: Yes Edema: LLE: Trace, RLE: Trace Peripheral Pulses WNL: Yes Neurological: Yes: Alert, Oriented Psychiatric: Yes: Alert, Oriented, Other (anxiety) Labs: CBC, BMP 02/28/18 12:25 03/02/18 07:00 - ....Imaging Chest X-ray: Image Reviewed (CHF: no significant change) Problem List - Problems (1) Anxiety Code(s): F41.9 - ANXIETY DISORDER, UNSPECIFIED (2) Hypertension Assessment/Plan: Now on valsartan, metoprolol; also on furosemide presently. Code(s): I10 - ESSENTIAL (PRIMARY) HYPERTENSION Qualifiers: Hypertension type: unspecified Qualified Code(s): I10 - Essential (primary ) hypertension (3) Shortness of breath Code(s): R06.02 - SHORTNESS OF BREATH (4) Leukocytosis Assessment/Plan: f/u CBC Code(s): D72.829 - ELEVATED WHITE BLOOD CELL COUNT, UNSPECIFIED (5) Acute on chronic diastolic (congestive) heart failure Assessment/Plan: Still symptomatic. CXR: no significant change. Improved LE swelling. TNI < 0.02 x 3 TSH WNL. 3.5 lb weight loss. On valsartran, metoprolol, and IV furosemide (will give a 2nd dose of 40 mg furosemide now) F/u BUN/Cr, electrolytes, daily weight, Is and Os. Code(s): I50.33 - ACUTE ON CHRONIC DIASTOLIC (CONGESTIVE) HEART FAILURE (6) PSVT (paroxysmal supraventricular tachycardia) Assessment/Plan: brief episode PSVT. ECHO: normal LVEF. Continue metoprolol and ARB. Keep electrolytes WNL. Code(s): I47.1 - SUPRAVENTRICULAR TACHYCARDIA
[2018-03-02] MEDS ORDERED: FUROSEMIDE 40 MG/4 ML INJECTABLE VIAL IVPUSH ONE (18:45)
[2018-03-02] MEDS: guaiFENesin 200 MG/10 ML 10 ML UNIT-DOSE CUPS PO PRN (21:46)
[2018-03-03 07:39] LABS: BASO % 1.2 % (0-2.0); EOS % 1.9 % (0-4.5); HEMATOCRIT 40.9 % (32.4-45.2); HEMOGLOBIN 13.8 GM/dL (10.7-15.3); LYMPH % 15.9 % (8-40); MCH 33.2 pg (25.7-33.7); MCHC 33.7 g/dl (32.0-36.0); MEAN CELL VOLUME 98.5 fl (80-96); MEAN PLT VOLUME 9.6 fl (7.5-11.1); MONO % 10.8 % (3.8-10.2); NEUT % 70.2 % (42.8-82.8); RBC 4.15 M/mm3 (3.60-5.2); RDW 13.6 % (11.6-15.6); WHITE BLOOD COUNT 10.6 K/mm3 (4.0-10.0)
[2018-03-03 08:27] LABS: CHLORIDE 96 mmol/L (98-107); POTASSIUM 3.7 mmol/L (3.5-5.1); SODIUM 136 mmol/L (136-145)
[2018-03-03 08:40] LABS: ANION GAP 10 (8-16); BLOOD UREA NITROGEN 19 mg/dL (7-18); CALCIUM 8.5 mg/dL (8.5-10.1); CO2 30 mmol/L (21-32); GLUCOSE,RANDOM 92 mg/dL (74-106); MAGNESIUM 1.9 mg/dL (1.8-2.4); PHOSPHOROUS 3.2 mg/dL (2.5-4.9)
[2018-03-03] MEDS: ENOXAPARIN NA (PORCINE) 40 MG/0.4 ML DISP.SYRIN SQ SCH (09:51)
[2018-03-03] MEDS: PANTOPRAZOLE SODIUM 40 MG VIAL IVPUSH SCH (09:51)
[2018-03-03] MEDS: FUROSEMIDE 40 MG/4 ML INJECTABLE VIAL IVPUSH SCH (09:51)
[2018-03-03] MEDS: METOPROLOL TARTRATE 25 MG TABLET (FP) PO SCH ×2 (09:51→21:52)
[2018-03-03] MEDS: VALSARTAN 160 MG TABLET (UD) PO SCH (09:52)
[2018-03-03] MEDS: ASPIRIN COATED 81 MG TABLET.EC PO SCH (09:52)
[2018-03-03] MEDS: ACETAMINOPHEN 325 MG TABLET (FP) PO SCH ×4 (09:53→21:54)
--- NOTE | 2018-03-03 10:20 | PN ---
Progress Note, Physician History of Present Illness: 87 [facility]white [facility] with a PMH of HTN, HLD, presents to our ED c/o 1 week h/o productive (whitish sputum) cough, chest tightness, dyspnea on exertion as well as subjective fevers/chills. Patient notes she was evaluated by her PMD, Dr. Han, two weeks previous at which time she was treated for a viral URI as well as a UTI. Patient states she was treated with Bactrim for the UTI however cannot recall the name of the antibiotic she was prescribed for the URI. Patient notes she completed the entire antibiotic course of both medications. ROS is positive for decreased PO intake over the last 2 weeks as well as B/L foot swelling Pt says she never had leg swelling before. - Current Medication List Current Medications: Active Medications Acetaminophen (Tylenol -) 650 mg PO QID [facility] Last Admin: 03/03/18 09:53 Dose: Not Given Aspirin (Ecotrin -) 81 mg PO DAILY [facility] Last Admin: 03/03/18 09:52 Dose: 81 mg Benzocaine/Menthol (Cepacol Lozenge -) 1 each MM PRN PRN PRN Reason: SORE THROAT Enoxaparin Sodium (Lovenox -) 40 mg SQ DAILY [facility] Last Admin: 03/03/18 09:51 Dose: 40 mg Furosemide (Lasix Injection -) 40 mg IVPUSH DAILY [facility] Last Admin: 03/03/18 09:51 Dose: 40 mg Guaifenesin (Robitussin -) 10 ml PO Q6H PRN PRN Reason: COUGH Last Admin: 03/02/18 21:46 Dose: 10 ml Metoprolol Tartrate (Lopressor Injection -) 5 mg IVPUSH Q4H PRN PRN Reason: HYPERTENSION Metoprolol Tartrate (Lopressor -) 25 mg PO BID [facility] Last Admin: 03/03/18 09:51 Dose: 25 mg Pantoprazole Sodium (Protonix Iv) 40 mg IVPUSH DAILY [facility] Last Admin: 03/03/18 09:51 Dose: 40 mg Valsartan (Diovan -) 160 mg PO DAILY [facility] Last Admin: 03/03/18 09:52 Dose: 160 mg - Objective Vital Signs: Vital Signs Temperature 97.8 F 03/03/18 06:00 Pulse Rate 80 03/03/18 06:00 Respiratory Rate 20 03/03/18 06:00 Blood Pressure 130/64 03/03/18 06:00 O2 Sat by Pulse Oximetry (%) 93 L 03/02/18 20:51 Eyes: Yes: WNL, Conjunctiva Clear, EOM Intact HENT: Yes: WNL, Atraumatic, Normocephalic Neck: Yes: WNL, Supple, Trachea Midline Cardiovascular: Yes: WNL, Regular Rate and Rhythm Respiratory: Yes: WNL, Regular, CTA Bilaterally Gastrointestinal: Yes: WNL, Normal Bowel Sounds Genitourinary: Yes: WNL Musculoskeletal: Yes: WNL Extremities: Yes: WNL Edema: No Integumentary: Yes: WNL Neurological: Yes: WNL, Alert, Oriented ...Motor Strength: WNL Psychiatric: Yes: WNL Labs: CBC, BMP 03/03/18 06:30 03/03/18 06:30 Assessment/Plan - Problems (1) Anxiety Code(s): F41.9 - ANXIETY DISORDER, UNSPECIFIED (2) Hypertension Assessment/Plan: Now on valsartan, metoprolol; also on furosemide presently. Code(s): I10 - ESSENTIAL (PRIMARY) HYPERTENSION Qualifiers: Hypertension type: unspecified Qualified Code(s): I10 - Essential (primary ) hypertension (3) Shortness of breath Code(s): R06.02 - SHORTNESS OF BREATH (4) Leukocytosis Assessment/Plan: f/u CBC Code(s): D72.829 - ELEVATED WHITE BLOOD CELL COUNT, UNSPECIFIED (5) Acute on chronic diastolic (congestive) heart failure Assessment/Plan: Still symptomatic. CXR: no significant change. Improved LE swelling. TNI < 0.02 x 3 TSH WNL. 3.5 lb weight loss. On valsartran, metoprolol, and IV furosemide (will give a 2nd dose of 40 mg furosemide now) F/u BUN/Cr, electrolytes, daily weight, Is and Os. Code(s): I50.33 - ACUTE ON CHRONIC DIASTOLIC (CONGESTIVE) HEART FAILURE (6) PSVT (paroxysmal supraventricular tachycardia) Assessment/Plan: brief episode PSVT. ECHO: normal LVEF. Continue metoprolol and ARB. Keep electrolytes WNL. Code(s): I47.1 - SUPRAVENTRICULAR TACHYCARDIA
--- NOTE | 2018-03-03 12:28 | EKG ---
Test Reason : Blood Pressure : / mmHG Vent. Rate : 085 BPM Atrial Rate : 085 BPM P-R Int : 106 ms QRS Dur : 094 ms QT Int : 414 ms P-R-T Axes : 059 007 213 degrees QTc Int : 492 ms SINUS RHYTHM WITH SHORT DE WITH OCCASIONAL PREMATURE VENTRICULAR COMPLEXES ANTERIOR INFARCT , AGE UNDETERMINED T WAVE ABNORMALITY, CONSIDER INFEROLATERAL ISCHEMIA ABNORMAL ECG WHEN COMPARED WITH ECG OF 01-MAR-2018 09:37, PREMATURE VENTRICULAR COMPLEXES ARE NOW PRESENT T WAVE INVERSION NOW EVIDENT IN INFERIOR LEADS T WAVE INVERSION NOW EVIDENT IN ANTEROLATERAL LEADS Confirmed by REYNA HOWARD MD ([id number]) on 03/03/2018 12:27:36 PM Referred By: RADHA CHANDLERFRANCISCAN HEALTH MOORESVILLEWilmer Confirmed By:REYNA HOWARD MD
[2018-03-03 13:05] LABS: PLATELET ESTIMATE ADEQUATE
--- NOTE | 2018-03-03 15:11 | PN ---
Progress Note (short form) - Note Progress Note: medical note Current Medications Acetaminophen (Tylenol -) 650 mg PO QID [facility] Last Admin: 03/03/18 14:11 Dose: Not Given Aspirin (Ecotrin -) 81 mg PO DAILY [facility] Last Admin: 03/03/18 09:52 Dose: 81 mg Benzocaine/Menthol (Cepacol Lozenge -) 1 each MM PRN PRN PRN Reason: SORE THROAT Enoxaparin Sodium (Lovenox -) 40 mg SQ DAILY [facility] Last Admin: 03/03/18 09:51 Dose: 40 mg Furosemide (Lasix Injection -) 40 mg IVPUSH DAILY [facility] Last Admin: 03/03/18 09:51 Dose: 40 mg Guaifenesin (Robitussin -) 10 ml PO Q6H PRN PRN Reason: COUGH Last Admin: 03/02/18 21:46 Dose: 10 ml Metoprolol Tartrate (Lopressor Injection -) 5 mg IVPUSH Q4H PRN PRN Reason: HYPERTENSION Metoprolol Tartrate (Lopressor -) 25 mg PO BID [facility] Last Admin: 03/03/18 09:51 Dose: 25 mg Pantoprazole Sodium (Protonix Iv) 40 mg IVPUSH DAILY [facility] Last Admin: 03/03/18 09:51 Dose: 40 mg Spironolactone (Aldactone -) 25 mg PO DAILY [facility] Valsartan (Diovan -) 160 mg PO DAILY [facility] Last Admin: 03/03/18 09:52 Dose: 160 mg Laboratory Results - last 24 hr 03/03/18 03/03/18 06:30 06:30 WBC 10.6 H RBC 4.15 Hgb 13.8 Hct 40.9 MCV 98.5 H MCH 33.2 MCHC 33.7 RDW 13.6 Plt Count No Result Required. MPV 9.6 Neutrophils % 70.2 Lymphocytes % 15.9 D Monocytes % 10.8 H Eosinophils % 1.9 D Basophils % 1.2 Platelet Estimate Adequate Platelet Comment Slt plt clumping Sodium 136 Potassium 3.7 Chloride 96 L Carbon Dioxide 30 Anion Gap 10 BUN 19 H Creatinine 1.0 Random Glucose 92 Calcium 8.5 Phosphorus 3.2 Magnesium 1.9 Vital Signs Period Temp Pulse Resp BP Sys/Adamson Pulse Ox Last 24 Hr 97.3 F-98.3 F 80-92 16-20 103-143/60-84 93-93 CC: dry throat `````````````````````````````````` skin--no rashes lungs--decreased BS at bases heart--RR ext--trace edema neuro--alert, anxious, coherent; no deficits ```````````````````````````````````` Summ > Htn w/ ASHD & CHF--On IV Lasix; has lost > 3 Lbs of water-weight. The Bun is starting to rise slightly. BP has been in good range in past 24 Hrs. Echo does not show any LV dysf; PLAn; cont current ARB; add Lopressor BID; aldactone & Lasix IVP (may need to lower if the Bun keeps rising); will recheck CXR in AM > SVT--short burst only; will Rx BB > Sore throat--likely 2nd postansal drip irritation; throat swab is negative > Anxiety--chronic; overly pre-occupied; will consider using anxiolytic if nocturnal events continue ~~~~~~~~~~~~~~~~~~~~~~~~~ Dr Commentucci Problem List - Problems (1) CHF (congestive heart failure) Code(s): I50.9 - HEART FAILURE, UNSPECIFIED Qualifiers: Heart failure type: combined systolic and diastolic Heart failure chronicity: acute Qualified Code(s): I50.41 - Acute combined systolic ( congestive) and diastolic (congestive) heart failure (2) Hypertension Code(s): I10 - ESSENTIAL (PRIMARY) HYPERTENSION Qualifiers: Hypertension type: unspecified Qualified Code(s): I10 - Essential (primary ) hypertension (3) Personal history UTI Code(s): Z87.440 - PERSONAL HISTORY OF URINARY (TRACT) INFECTIONS (4) History of environmental allergies Code(s): Z91.09 - OTH ALLERGY STATUS, OTH THAN TO DRUGS AND BIOLG SUBSTANCES (5) Osteoporosis Code(s): M81.0 - AGE-RELATED OSTEOPOROSIS W/O CURRENT PATHOLOGICAL FRACTURE Qualifiers: Osteoporosis type: age-related (6) History of kidney stones Code(s): Z87.442 - PERSONAL HISTORY OF URINARY CALCULI (7) Lipidemia Code(s): E78.5 - HYPERLIPIDEMIA, UNSPECIFIED Qualifiers: Hyperlipidemia type: unspecified Qualified Code(s): E78.5 - Hyperlipidemia , unspecified (8) Anxiety Code(s): F41.9 - ANXIETY DISORDER, UNSPECIFIED
[2018-03-03] MEDS: SPIRONOLACTONE 25 MG TABLET (FP) PO SCH (15:24)
[2018-03-04 08:11] LABS: CHLORIDE 97 mmol/L (98-107); POTASSIUM 3.5 mmol/L (3.5-5.1); SODIUM 134 mmol/L (136-145)
[2018-03-04 09:00] LABS: ANION GAP 9 (8-16); BLOOD UREA NITROGEN 21 mg/dL (7-18); CALCIUM 8.4 mg/dL (8.5-10.1); CO2 28 mmol/L (21-32); CREATININE 0.9 mg/dL (0.55-1.02); GLUCOSE,RANDOM 93 mg/dL (74-106); MAGNESIUM 1.7 mg/dL (1.8-2.4)
[2018-03-04] MEDS: ENOXAPARIN NA (PORCINE) 40 MG/0.4 ML DISP.SYRIN SQ SCH (09:24)
[2018-03-04] MEDS: PANTOPRAZOLE SODIUM 40 MG VIAL IVPUSH SCH (09:24)
[2018-03-04] MEDS: VALSARTAN 160 MG TABLET (UD) PO SCH (09:25)
[2018-03-04] MEDS: FUROSEMIDE 40 MG/4 ML INJECTABLE VIAL IVPUSH SCH (09:25)
[2018-03-04] MEDS: SPIRONOLACTONE 25 MG TABLET (FP) PO SCH (09:25)
[2018-03-04] MEDS: METOPROLOL TARTRATE 25 MG TABLET (FP) PO SCH ×2 (09:25→21:46)
[2018-03-04] MEDS: ASPIRIN COATED 81 MG TABLET.EC PO SCH (09:25)
[2018-03-04] MEDS: ACETAMINOPHEN 325 MG TABLET (FP) PO SCH ×4 (09:26→21:47)
--- NOTE | 2018-03-04 11:16 | PN ---
Progress Note, Physician Chief Complaint: Events noted Not in distress and feels better History of Present Illness: Patient seen and examined covering for Dr. Mckinnon Awake and alert. Chart was reviewed Denies chest pain, SOB or palpitations - Current Medication List Current Medications: Active Medications Acetaminophen (Tylenol -) 650 mg PO QID [facility] Last Admin: 03/04/18 09:26 Dose: Not Given Aspirin (Ecotrin -) 81 mg PO DAILY [facility] Last Admin: 03/04/18 09:25 Dose: 81 mg Benzocaine/Menthol (Cepacol Lozenge -) 1 each MM PRN PRN PRN Reason: SORE THROAT Enoxaparin Sodium (Lovenox -) 40 mg SQ DAILY [facility] Last Admin: 03/04/18 09:24 Dose: 40 mg Furosemide (Lasix Injection -) 40 mg IVPUSH DAILY [facility] Last Admin: 03/04/18 09:25 Dose: 40 mg Guaifenesin (Robitussin -) 10 ml PO Q6H PRN PRN Reason: COUGH Last Admin: 03/02/18 21:46 Dose: 10 ml Metoprolol Tartrate (Lopressor Injection -) 5 mg IVPUSH Q4H PRN PRN Reason: HYPERTENSION Metoprolol Tartrate (Lopressor -) 25 mg PO BID [facility] Last Admin: 03/04/18 09:25 Dose: 25 mg Pantoprazole Sodium (Protonix Iv) 40 mg IVPUSH DAILY [facility] Last Admin: 03/04/18 09:24 Dose: 40 mg Spironolactone (Aldactone -) 25 mg PO DAILY [facility] Last Admin: 03/04/18 09:25 Dose: 25 mg Valsartan (Diovan -) 160 mg PO DAILY [facility] Last Admin: 03/04/18 09:25 Dose: 160 mg - Objective Vital Signs: Vital Signs Temperature 97.8 F 03/03/18 21:00 Pulse Rate 80 03/04/18 06:00 Respiratory Rate 20 03/04/18 06:00 Blood Pressure 138/63 03/04/18 06:00 O2 Sat by Pulse Oximetry (%) 96 03/03/18 20:00 Constitutional: Yes: Well Nourished Eyes: Yes: PERRL HENT: Yes: Atraumatic Neck: Yes: Supple Cardiovascular: Yes: Regular Rate and Rhythm, S1, S2 Respiratory: Yes: Diminished Gastrointestinal: Yes: Normal Bowel Sounds, Soft. No: Tenderness Edema: No Additional Findings/Remarks: - Review of Systems Constitutional: denies: Chills, Fever Cardiovascular: denies: chest pain, SOB, palpitation Respiratory: denies: Cough and sputum Production Gastrointestinal: denies: Nausea, Vomiting, Diarrhea, Constipation or Abdominal Pain Musculoskeletal: denies: Joint Pain Neurological: denies: Dizziness or Headaches Labs: CBC, BMP 03/03/18 06:30 03/04/18 06:00 Problem List - Problems (1) Acute on chronic diastolic (congestive) heart failure Code(s): I50.33 - ACUTE ON CHRONIC DIASTOLIC (CONGESTIVE) HEART FAILURE (2) Anxiety Code(s): F41.9 - ANXIETY DISORDER, UNSPECIFIED (3) Hypertension Code(s): I10 - ESSENTIAL (PRIMARY) HYPERTENSION Qualifiers: Hypertension type: essential hypertension Qualified Code(s): I10 - Essential (primary) hypertension (4) Leukocytosis Code(s): D72.829 - ELEVATED WHITE BLOOD CELL COUNT, UNSPECIFIED Qualifiers: Leukocytosis type: unspecified Qualified Code(s): D72.829 - Elevated white blood cell count, unspecified (5) PSVT (paroxysmal supraventricular tachycardia) Code(s): I47.1 - SUPRAVENTRICULAR TACHYCARDIA (6) Shortness of breath Code(s): R06.02 - SHORTNESS OF BREATH Assessment/Plan 1. Acute on chronic diastolic LV failure - improving 2. History of PSVT 3. Hypertension 4. Anxiety PLAN: 1. Continue Metoprolol and Valsartan as tolerated 2. Continue Diuretics - switch IV Lasix to PO. Patient is on Spironolactone - continue as tolerated and monitor electrolytes and renal function 3. DVT and GI prophylaxis Further plans are to follow Garett Inman MD
[2018-03-04] MEDS ORDERED: MAGNESIUM 1GM/D5W 100ML - 100 ML IVPB IVPB ONE (13:00)
--- NOTE | 2018-03-04 13:09 | PN ---
Progress Note (short form) - Note Progress Note: ^^^^^^^^^^^^^^^ medical note ^^^^^^^^^^^^ Current Medications Acetaminophen (Tylenol -) 650 mg PO QID [facility] Last Admin: 03/04/18 09:26 Dose: Not Given Aspirin (Ecotrin -) 81 mg PO DAILY [facility] Last Admin: 03/04/18 09:25 Dose: 81 mg Benzocaine/Menthol (Cepacol Lozenge -) 1 each MM PRN PRN PRN Reason: SORE THROAT Enoxaparin Sodium (Lovenox -) 40 mg SQ DAILY [facility] Last Admin: 03/04/18 09:24 Dose: 40 mg Furosemide (Lasix -) 60 mg PO DAILY [facility] Guaifenesin (Robitussin -) 10 ml PO Q6H PRN PRN Reason: COUGH Last Admin: 03/02/18 21:46 Dose: 10 ml Magnesium Sulfate (Magnesium Sulfate) 1 gm IVPB ONCE ONE Stop: 03/04/18 13:01 Metoprolol Tartrate (Lopressor Injection -) 5 mg IVPUSH Q4H PRN PRN Reason: HYPERTENSION Metoprolol Tartrate (Lopressor -) 25 mg PO BID [facility] Last Admin: 03/04/18 09:25 Dose: 25 mg Pantoprazole Sodium (Protonix Iv) 40 mg IVPUSH DAILY [facility] Last Admin: 03/04/18 09:24 Dose: 40 mg Spironolactone (Aldactone -) 25 mg PO DAILY [facility] Last Admin: 03/04/18 09:25 Dose: 25 mg Valsartan (Diovan -) 160 mg PO DAILY [facility] Last Admin: 03/04/18 09:25 Dose: 160 mg Laboratory Results - last 24 hr 03/03/18 03/04/18 06:30 06:00 Plt Count No Result Required. Platelet Estimate Adequate Platelet Comment Slt plt clumping Sodium 134 L Potassium 3.5 Chloride 97 L Carbon Dioxide 28 Anion Gap 9 BUN 21 H Creatinine 0.9 Random Glucose 93 Calcium 8.4 L Magnesium 1.7 L Vital Signs Temperature 97.8 F 03/03/18 21:00 Pulse Rate 80 03/04/18 06:00 Respiratory Rate 20 03/04/18 06:00 Blood Pressure 138/63 03/04/18 06:00 O2 Sat by Pulse Oximetry (%) 96 03/03/18 20:00 CC: feels better `````````````````````````````````` skin--no rashes lungs--decreased BS at bases heart--RR ext--no edema neuro--alert, anxious, coherent; no deficits ```````````````````````````````````` CXR (today)= effusion seems less dense; Cardiac shadow is more visible ``````````````````````````````````````````````````` Summ > Htn w/ ASHD & CHF--On IV Lasix; has lost more weight. NO further pedal edema; BP remains Okay. The Bun is starting to rise slightly, and will stop IV Lasix and change to PO > Low Mag/K--replenish as needed > SVT--short burst only controlled with BB > Sore throat--likely 2nd postansal drip irritation; throat swab is negative > Anxiety--chronic. ~~~~~~~~~~~~~~~~~~~~~~~~~ Dr Emely Problem List - Problems (1) CHF (congestive heart failure) Code(s): I50.9 - HEART FAILURE, UNSPECIFIED Qualifiers: Heart failure type: combined systolic and diastolic Heart failure chronicity: acute Qualified Code(s): I50.41 - Acute combined systolic ( congestive) and diastolic (congestive) heart failure (2) Hypertension Code(s): I10 - ESSENTIAL (PRIMARY) HYPERTENSION Qualifiers: Hypertension type: essential hypertension Qualified Code(s): I10 - Essential (primary) hypertension (3) Personal history UTI Code(s): Z87.440 - PERSONAL HISTORY OF URINARY (TRACT) INFECTIONS (4) History of environmental allergies Code(s): Z91.09 - OTH ALLERGY STATUS, OTH THAN TO DRUGS AND BIOLG SUBSTANCES (5) Osteoporosis Code(s): M81.0 - AGE-RELATED OSTEOPOROSIS W/O CURRENT PATHOLOGICAL FRACTURE Qualifiers: Osteoporosis type: age-related (6) History of kidney stones Code(s): Z87.442 - PERSONAL HISTORY OF URINARY CALCULI (7) Lipidemia Code(s): E78.5 - HYPERLIPIDEMIA, UNSPECIFIED Qualifiers: Hyperlipidemia type: unspecified Qualified Code(s): E78.5 - Hyperlipidemia , unspecified (8) Anxiety Code(s): F41.9 - ANXIETY DISORDER, UNSPECIFIED
[2018-03-04] MEDS ORDERED: PT OWN MED DRAWER 7, Y5N ONE ×3 (13:50→20:06)
[2018-03-05 08:27] LABS: ANION GAP 11 (8-16); BLOOD UREA NITROGEN 21 mg/dL (7-18); CALCIUM 8.6 mg/dL (8.5-10.1); CHLORIDE 93 mmol/L (98-107); CO2 32 mmol/L (21-32); GLUCOSE,RANDOM 92 mg/dL (74-106); MAGNESIUM 2.2 mg/dL (1.8-2.4); POTASSIUM 3.6 mmol/L (3.5-5.1); SODIUM 136 mmol/L (136-145)
[2018-03-05] MEDS: ENOXAPARIN NA (PORCINE) 40 MG/0.4 ML DISP.SYRIN SQ SCH (10:43)
[2018-03-05] MEDS: SPIRONOLACTONE 25 MG TABLET (FP) PO SCH (10:43)
[2018-03-05] MEDS: PANTOPRAZOLE SODIUM 40 MG VIAL IVPUSH SCH (10:43)
[2018-03-05] MEDS: VALSARTAN 160 MG TABLET (UD) PO SCH (10:43)
[2018-03-05] MEDS: ASPIRIN COATED 81 MG TABLET.EC PO SCH (10:43)
[2018-03-05] MEDS: METOPROLOL TARTRATE 25 MG TABLET (FP) PO SCH ×2 (10:43→21:11)
[2018-03-05] MEDS: FUROSEMIDE 20 MG TABLET (FP) PO SCH (10:43)
[2018-03-05] MEDS: ACETAMINOPHEN 325 MG TABLET (FP) PO SCH (10:44)
--- NOTE | 2018-03-05 10:56 | PN ---
Progress Note, Physician Chief Complaint: Events noted Not in distress and feels better Moved to floor care History of Present Illness: Patient seen and examined covering for Dr. Mckinnon Awake and alert. Chart was reviewed Denies chest pain, SOB or palpitations - Current Medication List Current Medications: Active Medications Acetaminophen (Tylenol -) 650 mg PO QID [facility] Last Admin: 03/05/18 10:44 Dose: Not Given Aspirin (Ecotrin -) 81 mg PO DAILY [facility] Last Admin: 03/05/18 10:43 Dose: Not Given Benzocaine/Menthol (Cepacol Lozenge -) 1 each MM PRN PRN PRN Reason: SORE THROAT Enoxaparin Sodium (Lovenox -) 40 mg SQ DAILY [facility] Last Admin: 03/05/18 10:43 Dose: 40 mg Furosemide (Lasix -) 60 mg PO DAILY [facility] Last Admin: 03/05/18 10:43 Dose: 60 mg Guaifenesin (Robitussin -) 10 ml PO Q6H PRN PRN Reason: COUGH Last Admin: 03/02/18 21:46 Dose: 10 ml Metoprolol Tartrate (Lopressor Injection -) 5 mg IVPUSH Q4H PRN PRN Reason: HYPERTENSION Metoprolol Tartrate (Lopressor -) 25 mg PO BID [facility] Last Admin: 03/05/18 10:43 Dose: 25 mg Pantoprazole Sodium (Protonix Iv) 40 mg IVPUSH DAILY [facility] Last Admin: 03/05/18 10:43 Dose: 40 mg Spironolactone (Aldactone -) 25 mg PO DAILY [facility] Last Admin: 03/05/18 10:43 Dose: 25 mg Valsartan (Diovan -) 160 mg PO DAILY [facility] Last Admin: 03/05/18 10:43 Dose: 160 mg - Objective Vital Signs: Vital Signs Temperature 98.2 F 03/05/18 10:42 Pulse Rate 93 H 03/05/18 10:42 Respiratory Rate 18 03/05/18 10:42 Blood Pressure 128/75 03/05/18 10:42 O2 Sat by Pulse Oximetry (%) 96 03/05/18 06:00 HENT: Yes: Atraumatic Neck: Yes: Supple Cardiovascular: Yes: Regular Rate and Rhythm, S1, S2 Respiratory: Yes: Diminished Gastrointestinal: Yes: Normal Bowel Sounds, Soft. No: Tenderness Edema: No Labs: CBC, BMP 03/03/18 06:30 03/05/18 06:00 Problem List - Problems (1) Acute on chronic diastolic (congestive) heart failure Code(s): I50.33 - ACUTE ON CHRONIC DIASTOLIC (CONGESTIVE) HEART FAILURE (2) Anxiety Code(s): F41.9 - ANXIETY DISORDER, UNSPECIFIED (3) Hypertension Code(s): I10 - ESSENTIAL (PRIMARY) HYPERTENSION Qualifiers: Hypertension type: essential hypertension Qualified Code(s): I10 - Essential (primary) hypertension (4) Leukocytosis Code(s): D72.829 - ELEVATED WHITE BLOOD CELL COUNT, UNSPECIFIED Qualifiers: Leukocytosis type: unspecified Qualified Code(s): D72.829 - Elevated white blood cell count, unspecified (5) PSVT (paroxysmal supraventricular tachycardia) Code(s): I47.1 - SUPRAVENTRICULAR TACHYCARDIA (6) Shortness of breath Code(s): R06.02 - SHORTNESS OF BREATH Assessment/Plan 1. Acute on chronic diastolic LV failure - improving 2. History of PSVT 3. Hypertension 4. Anxiety PLAN: 1. Continue Metoprolol and Valsartan as tolerated 2. Continue Diuretics - Lasix to PO. Patient is also on Spironolactone - continue as tolerated and monitor electrolytes and renal function 3. DVT and GI prophylaxis 4. Continue ASA Further plans are to follow Garett Inman MD
[2018-03-05] MEDS ORDERED: ACETAMINOPHEN 325 MG TABLET (FP) PO PRN (13:33)
--- NOTE | 2018-03-05 15:54 | PN ---
Progress Note, Physician Chief Complaint: Covering Dr Han Pt is comfortable no cough or SOB Has good urine out put per staff - Current Medication List Current Medications: Active Medications Acetaminophen (Tylenol -) 650 mg PO Q6H PRN PRN Reason: PAIN Aspirin (Ecotrin -) 81 mg PO DAILY [facility] Last Admin: 03/05/18 10:43 Dose: Not Given Benzocaine/Menthol (Cepacol Lozenge -) 1 each MM PRN PRN PRN Reason: SORE THROAT Enoxaparin Sodium (Lovenox -) 40 mg SQ DAILY [facility] Last Admin: 03/05/18 10:43 Dose: 40 mg Furosemide (Lasix -) 60 mg PO DAILY [facility] Last Admin: 03/05/18 10:43 Dose: 60 mg Guaifenesin (Robitussin -) 10 ml PO Q6H PRN PRN Reason: COUGH Last Admin: 03/02/18 21:46 Dose: 10 ml Metoprolol Tartrate (Lopressor Injection -) 5 mg IVPUSH Q4H PRN PRN Reason: HYPERTENSION Metoprolol Tartrate (Lopressor -) 25 mg PO BID [facility] Last Admin: 03/05/18 10:43 Dose: 25 mg Pantoprazole Sodium (Protonix Iv) 40 mg IVPUSH DAILY [facility] Last Admin: 03/05/18 10:43 Dose: 40 mg Spironolactone (Aldactone -) 25 mg PO DAILY [facility] Last Admin: 03/05/18 10:43 Dose: 25 mg Valsartan (Diovan -) 160 mg PO DAILY [facility] Last Admin: 03/05/18 10:43 Dose: 160 mg - Objective Vital Signs: Vital Signs Temperature 97.4 F L 03/05/18 13:50 Pulse Rate 88 03/05/18 13:50 Respiratory Rate 20 03/05/18 13:50 Blood Pressure 115/76 03/05/18 13:50 O2 Sat by Pulse Oximetry (%) 96 03/05/18 09:00 Constitutional: Yes: No Distress Cardiovascular: Yes: Regular Rate and Rhythm, Murmur Respiratory: Yes: Diminished (at bases) Gastrointestinal: Yes: Normal Bowel Sounds, Soft. No: Tenderness Edema: No Labs: CBC, BMP 03/03/18 06:30 03/05/18 06:00 Problem List - Problems (1) Acute on chronic diastolic (congestive) heart failure Code(s): I50.33 - ACUTE ON CHRONIC DIASTOLIC (CONGESTIVE) HEART FAILURE (2) Anxiety Code(s): F41.9 - ANXIETY DISORDER, UNSPECIFIED (3) Hypertension Code(s): I10 - ESSENTIAL (PRIMARY) HYPERTENSION Qualifiers: Hypertension type: essential hypertension Qualified Code(s): I10 - Essential (primary) hypertension Assessment/Plan PLAN CXR reviewed Continue with Lasix and Aldactone at current dose Monitor renal function OOB PT eval change protonix to PO
[2018-03-06 08:18] LABS: ANION GAP 10 (8-16); BLOOD UREA NITROGEN 22 mg/dL (7-18); CALCIUM 8.5 mg/dL (8.5-10.1); CHLORIDE 97 mmol/L (98-107); CO2 32 mmol/L (21-32); GLUCOSE,RANDOM 89 mg/dL (74-106); POTASSIUM 3.5 mmol/L (3.5-5.1); SODIUM 139 mmol/L (136-145)
[2018-03-06] MEDS: FUROSEMIDE 20 MG TABLET (FP) PO SCH (10:00)
[2018-03-06] MEDS: METOPROLOL TARTRATE 25 MG TABLET (FP) PO SCH ×2 (10:00→21:50)
[2018-03-06] MEDS: SPIRONOLACTONE 25 MG TABLET (FP) PO SCH (10:00)
[2018-03-06] MEDS: VALSARTAN 160 MG TABLET (UD) PO SCH (10:00)
[2018-03-06] MEDS: ENOXAPARIN NA (PORCINE) 40 MG/0.4 ML DISP.SYRIN SQ SCH (10:01)
[2018-03-06] MEDS: ASPIRIN COATED 81 MG TABLET.EC PO SCH (10:01)
[2018-03-06] MEDS: PANTOPRAZOLE 40 MG TABLET (FP) PO SCH (10:01)
--- NOTE | 2018-03-06 10:54 | PN ---
Progress Note, Physician History of Present Illness: 87 [facility] with [facility] PMH of HTN, HLD, presents to our ED c/o 1 week h/o productive (whitish sputum) cough, chest tightness, dyspnea on exertion as well as subjective fevers/chills. Patient notes she was evaluated by her PMD, Dr. Han, two weeks previous at which time she was treated for a viral URI as well as a UTI. Patient states she was treated with Bactrim for the UTI however cannot recall the name of the antibiotic she was prescribed for the URI. Patient notes she completed the entire antibiotic course of both medications. ROS is positive for decreased PO intake over the last 2 weeks as well as B/L foot swelling Pt says she never had leg swelling before. - Current Medication List Current Medications: Active Medications Acetaminophen (Tylenol -) 650 mg PO Q6H PRN PRN Reason: PAIN Last Admin: 03/05/18 21:11 Dose: 325 mg Aspirin (Ecotrin -) 81 mg PO DAILY [facility] Last Admin: 03/06/18 10:01 Dose: Not Given Benzocaine/Menthol (Cepacol Lozenge -) 1 each MM PRN PRN PRN Reason: SORE THROAT Enoxaparin Sodium (Lovenox -) 40 mg SQ DAILY [facility] Last Admin: 03/06/18 10:01 Dose: 40 mg Furosemide (Lasix -) 60 mg PO DAILY [facility] Last Admin: 03/06/18 10:00 Dose: 60 mg Guaifenesin (Robitussin -) 10 ml PO Q6H PRN PRN Reason: COUGH Last Admin: 03/02/18 21:46 Dose: 10 ml Metoprolol Tartrate (Lopressor Injection -) 5 mg IVPUSH Q4H PRN PRN Reason: HYPERTENSION Metoprolol Tartrate (Lopressor -) 25 mg PO BID [facility] Last Admin: 03/06/18 10:00 Dose: 25 mg Pantoprazole Sodium (Protonix -) 40 mg PO DAILY [facility] Last Admin: 03/06/18 10:01 Dose: 40 mg Spironolactone (Aldactone -) 25 mg PO DAILY [facility] Last Admin: 03/06/18 10:00 Dose: 25 mg Valsartan (Diovan -) 160 mg PO DAILY [facility] Last Admin: 03/06/18 10:00 Dose: 160 mg - Objective Vital Signs: Vital Signs Temperature 97.7 F 03/06/18 05:55 Pulse Rate 91 H 03/06/18 05:55 Respiratory Rate 20 03/06/18 05:55 Blood Pressure 150/71 03/06/18 05:55 O2 Sat by Pulse Oximetry (%) 98 03/05/18 21:00 Eyes: Yes: WNL, Conjunctiva Clear, EOM Intact HENT: Yes: WNL, Atraumatic, Normocephalic Neck: Yes: WNL, Supple, Trachea Midline Cardiovascular: Yes: WNL, Regular Rate and Rhythm Respiratory: Yes: WNL, Regular, CTA Bilaterally Gastrointestinal: Yes: WNL, Normal Bowel Sounds Genitourinary: Yes: WNL Musculoskeletal: Yes: WNL Extremities: Yes: WNL Edema: No Integumentary: Yes: WNL Neurological: Yes: WNL, Alert, Oriented ...Motor Strength: WNL Psychiatric: Yes: WNL Labs: CBC, BMP 03/03/18 06:30 03/06/18 06:15 Assessment/Plan - Problems (1) Anxiety Code(s): F41.9 - ANXIETY DISORDER, UNSPECIFIED (2) Hypertension Assessment/Plan: Now on valsartan, metoprolol; also on furosemide presently. Code(s): I10 - ESSENTIAL (PRIMARY) HYPERTENSION Qualifiers: Hypertension type: unspecified Qualified Code(s): I10 - Essential (primary ) hypertension (3) Shortness of breath Code(s): R06.02 - SHORTNESS OF BREATH (4) Leukocytosis Assessment/Plan: f/u CBC Code(s): D72.829 - ELEVATED WHITE BLOOD CELL COUNT, UNSPECIFIED (5) Acute on chronic diastolic (congestive) heart failure Assessment/Plan: Still symptomatic. CXR: no significant change. Improved LE swelling. TNI < 0.02 x 3 TSH WNL. 3.5 lb weight loss. On valsartran, metoprolol, and IV furosemide (will give a 2nd dose of 40 mg furosemide now) F/u BUN/Cr, electrolytes, daily weight, Is and Os. Code(s): I50.33 - ACUTE ON CHRONIC DIASTOLIC (CONGESTIVE) HEART FAILURE (6) PSVT (paroxysmal supraventricular tachycardia) Assessment/Plan: brief episode PSVT. ECHO: normal LVEF. Continue metoprolol and ARB. Keep electrolytes WNL. Code(s): I47.1 - SUPRAVENTRICULAR TACHYCARDIA
--- NOTE | 2018-03-06 12:45 | PN ---
Progress Note (short form) - Note Progress Note: ###### medical note #### Current Medications Acetaminophen (Tylenol -) 650 mg PO Q6H PRN PRN Reason: PAIN Last Admin: 03/05/18 21:11 Dose: 325 mg Aspirin (Ecotrin -) 81 mg PO DAILY [facility] Last Admin: 03/06/18 10:01 Dose: Not Given Benzocaine/Menthol (Cepacol Lozenge -) 1 each MM PRN PRN PRN Reason: SORE THROAT Enoxaparin Sodium (Lovenox -) 40 mg SQ DAILY [facility] Last Admin: 03/06/18 10:01 Dose: 40 mg Furosemide (Lasix -) 60 mg PO DAILY [facility] Last Admin: 03/06/18 10:00 Dose: 60 mg Furosemide (Lasix Injection -) 20 mg IVPUSH ONCE ONE Stop: 03/06/18 16:01 Guaifenesin (Robitussin -) 10 ml PO Q6H PRN PRN Reason: COUGH Last Admin: 03/02/18 21:46 Dose: 10 ml Metoprolol Tartrate (Lopressor Injection -) 5 mg IVPUSH Q4H PRN PRN Reason: HYPERTENSION Metoprolol Tartrate (Lopressor -) 25 mg PO BID [facility] Last Admin: 03/06/18 10:00 Dose: 25 mg Pantoprazole Sodium (Protonix -) 40 mg PO DAILY [facility] Last Admin: 03/06/18 10:01 Dose: 40 mg Spironolactone (Aldactone -) 25 mg PO DAILY [facility] Last Admin: 03/06/18 10:00 Dose: 25 mg Valsartan (Diovan -) 160 mg PO DAILY [facility] Last Admin: 03/06/18 10:00 Dose: 160 mg Laboratory Results - last 24 hr 03/06/18 06:15 Sodium 139 Potassium 3.5 Chloride 97 L Carbon Dioxide 32 Anion Gap 10 BUN 22 H Creatinine 1.0 Random Glucose 89 Calcium 8.5 Vital Signs Temperature 97.7 F 03/06/18 05:55 Pulse Rate 91 H 03/06/18 05:55 Respiratory Rate 20 03/06/18 05:55 Blood Pressure 150/71 03/06/18 05:55 O2 Sat by Pulse Oximetry (%) 98 03/06/18 09:00 CC: no new complaints `````````````````````````````````` skin--no rashes lungs--decreased BS at bases heart--RR ext--no edema neuro--alert, anxious, coherent; no deficits ```````````````````````````````````` CXR (today)= effusion still present; Cardiac shadow is more visible ``````````````````````````````````````````````````` Summ > Htn w/ ASHD & CHF--On PO Lasix; weight down to 120Lbs no further pedal edema; BP fluctautes The Bun is up but stable; will add 1 dose of IV Lasix today > Hypoxia--2nd CHF; will see what O2 sat is off oxygen > Low Mag/K--replenish as needed > SVT--short burst only controlled with BB > Sore throat--likely 2nd postansal drip irritation; throat swab is negative > Anxiety--chronic. ~~~~~~~~~~~~~~~~~~~~~~~~~ Dr Commentci Problem List - Problems (1) CHF (congestive heart failure) Code(s): I50.9 - HEART FAILURE, UNSPECIFIED Qualifiers: Heart failure type: combined systolic and diastolic Heart failure chronicity: acute Qualified Code(s): I50.41 - Acute combined systolic ( congestive) and diastolic (congestive) heart failure (2) Hypertension Code(s): I10 - ESSENTIAL (PRIMARY) HYPERTENSION Qualifiers: Hypertension type: essential hypertension Qualified Code(s): I10 - Essential (primary) hypertension (3) Personal history UTI Code(s): Z87.440 - PERSONAL HISTORY OF URINARY (TRACT) INFECTIONS (4) History of environmental allergies Code(s): Z91.09 - OTH ALLERGY STATUS, OTH THAN TO DRUGS AND BIOLG SUBSTANCES (5) Osteoporosis Code(s): M81.0 - AGE-RELATED OSTEOPOROSIS W/O CURRENT PATHOLOGICAL FRACTURE Qualifiers: Osteoporosis type: age-related (6) History of kidney stones Code(s): Z87.442 - PERSONAL HISTORY OF URINARY CALCULI (7) Lipidemia Code(s): E78.5 - HYPERLIPIDEMIA, UNSPECIFIED Qualifiers: Hyperlipidemia type: unspecified Qualified Code(s): E78.5 - Hyperlipidemia , unspecified (8) Anxiety Code(s): F41.9 - ANXIETY DISORDER, UNSPECIFIED
[2018-03-06] MEDS ORDERED: POTASSIUM CHLORIDE TABS 10 MEQ TABLET.ER (FP) PO ONE ×2 (13:00→15:30)
[2018-03-06] MEDS ORDERED: FUROSEMIDE 40 MG/4 ML INJECTABLE VIAL IVPUSH ONE (16:00)
[2018-03-06] MEDS: guaiFENesin 200 MG/10 ML 10 ML UNIT-DOSE CUPS PO PRN (22:53)
[2018-03-07 08:19] LABS: ANION GAP 7 (8-16); BLOOD UREA NITROGEN 25 mg/dL (7-18); CALCIUM 8.4 mg/dL (8.5-10.1); CHLORIDE 98 mmol/L (98-107); CO2 34 mmol/L (21-32); GLUCOSE,RANDOM 94 mg/dL (74-106); POTASSIUM 3.6 mmol/L (3.5-5.1); SODIUM 139 mmol/L (136-145)
[2018-03-07] MEDS: FUROSEMIDE 40 MG TABLET (FP) PO SCH (09:37)
[2018-03-07] MEDS: SPIRONOLACTONE 25 MG TABLET (FP) PO SCH (09:38)
[2018-03-07] MEDS: PANTOPRAZOLE 40 MG TABLET (FP) PO SCH (09:38)
[2018-03-07] MEDS: METOPROLOL TARTRATE 25 MG TABLET (FP) PO SCH ×2 (09:38→22:01)
[2018-03-07] MEDS: ENOXAPARIN NA (PORCINE) 40 MG/0.4 ML DISP.SYRIN SQ SCH (09:38)
[2018-03-07] MEDS: ASPIRIN COATED 81 MG TABLET.EC PO SCH (09:38)
[2018-03-07] MEDS: VALSARTAN 160 MG TABLET (UD) PO SCH (09:38)
--- NOTE | 2018-03-07 11:50 | PN ---
Progress Note (short form) - Note Progress Note: ======== medical note Current Medications Acetaminophen (Tylenol -) 650 mg PO Q6H PRN PRN Reason: PAIN Last Admin: 03/05/18 21:11 Dose: 325 mg Aspirin (Ecotrin -) 81 mg PO DAILY [facility] Last Admin: 03/07/18 09:38 Dose: 81 mg Benzocaine/Menthol (Cepacol Lozenge -) 1 each MM PRN PRN PRN Reason: SORE THROAT Enoxaparin Sodium (Lovenox -) 40 mg SQ DAILY [facility] Last Admin: 03/07/18 09:38 Dose: 40 mg Furosemide (Lasix -) 80 mg PO DAILY [facility] Last Admin: 03/07/18 09:37 Dose: 80 mg Guaifenesin (Robitussin -) 10 ml PO Q6H PRN PRN Reason: COUGH Last Admin: 03/06/18 22:53 Dose: 10 ml Metoprolol Tartrate (Lopressor Injection -) 5 mg IVPUSH Q4H PRN PRN Reason: HYPERTENSION Metoprolol Tartrate (Lopressor -) 25 mg PO BID [facility] Last Admin: 03/07/18 09:38 Dose: 25 mg Pantoprazole Sodium (Protonix -) 40 mg PO DAILY [facility] Last Admin: 03/07/18 09:38 Dose: 40 mg Spironolactone (Aldactone -) 25 mg PO DAILY [facility] Last Admin: 03/07/18 09:38 Dose: 25 mg Valsartan (Diovan -) 160 mg PO DAILY [facility] Last Admin: 03/07/18 09:38 Dose: 160 mg Laboratory Results - last 24 hr 03/07/18 06:00 Sodium 139 Potassium 3.6 Chloride 98 Carbon Dioxide 34 H Anion Gap 7 L BUN 25 H Creatinine 1.0 Random Glucose 94 Calcium 8.4 L Vital Signs Temperature 97.9 F 03/07/18 10:00 Pulse Rate 102 H 03/07/18 10:00 Respiratory Rate 20 03/07/18 10:00 Blood Pressure 123/60 03/07/18 10:00 O2 Sat by Pulse Oximetry (%) 95 03/07/18 10:00 CC: some loose stools, no BERRIOS when walking `````````````````````````````````` skin--no rashes; IV site clear lungs--decreased BS at bases heart--RR ext--no edema neuro--alert, anxious, coherent; no deficits ```````````````````````````````````` Summ > Htn w/ ASHD & CHF--On PO Lasix, up dose to 80mg; weight down to 119 Lbs no further pedal edema; PLAN: Cxr in AM; hope for d/c if CXR stable and oximetry is good off oxygen > Hypoxia--2nd CHF; was 92% on RA yesterday > Low Mag/K--replenish as needed > SVT--short burst only controlled with BB > Anxiety--chronic. ~~~~~~~~~~~~~~~~~~~~~~~~~ Dr Han Problem List - Problems (1) CHF (congestive heart failure) Code(s): I50.9 - HEART FAILURE, UNSPECIFIED Qualifiers: Heart failure type: combined systolic and diastolic Heart failure chronicity: acute Qualified Code(s): I50.41 - Acute combined systolic ( congestive) and diastolic (congestive) heart failure (2) Hypertension Code(s): I10 - ESSENTIAL (PRIMARY) HYPERTENSION Qualifiers: Hypertension type: essential hypertension Qualified Code(s): I10 - Essential (primary) hypertension (3) Personal history UTI Code(s): Z87.440 - PERSONAL HISTORY OF URINARY (TRACT) INFECTIONS (4) History of environmental allergies Code(s): Z91.09 - OTH ALLERGY STATUS, OTH THAN TO DRUGS AND BIOLG SUBSTANCES (5) Osteoporosis Code(s): M81.0 - AGE-RELATED OSTEOPOROSIS W/O CURRENT PATHOLOGICAL FRACTURE Qualifiers: Osteoporosis type: age-related (6) History of kidney stones Code(s): Z87.442 - PERSONAL HISTORY OF URINARY CALCULI (7) Lipidemia Code(s): E78.5 - HYPERLIPIDEMIA, UNSPECIFIED Qualifiers: Hyperlipidemia type: unspecified Qualified Code(s): E78.5 - Hyperlipidemia , unspecified (8) Anxiety Code(s): F41.9 - ANXIETY DISORDER, UNSPECIFIED
--- NOTE | 2018-03-07 19:34 | PN ---
Progress Note, Physician Chief Complaint: Pt alert and oriented; concerned about weight loss (7 lbs since admission?); no dyspnea; no chest pain. History of Present Illness: 87 year old white female (dandre [place]) with a PMH of HTN, HLD, presents to our ED c/o 1 week h/o productive (whitish sputum) cough, chest tightness, dyspnea on exertion as well as subjective fevers/chills. Patient notes she was evaluated by her PMD, Dr. Han, two weeks previous at which time she was treated for a viral URI as well as a UTI. Patient states she was treated with Bactrim for the UTI however cannot recall the name of the antibiotic she was prescribed for the URI. Patient notes she completed the entire antibiotic course of both medications. ROS is positive for decreased PO intake over the last 2 weeks as well as B/L foot swelling Pt says she never had leg swelling before. - Current Medication List Current Medications: Active Medications Acetaminophen (Tylenol -) 650 mg PO Q6H PRN PRN Reason: PAIN Last Admin: 03/05/18 21:11 Dose: 325 mg Aspirin (Ecotrin -) 81 mg PO DAILY [facility] Last Admin: 03/07/18 09:38 Dose: 81 mg Benzocaine/Menthol (Cepacol Lozenge -) 1 each MM PRN PRN PRN Reason: SORE THROAT Enoxaparin Sodium (Lovenox -) 40 mg SQ DAILY [facility] Last Admin: 03/07/18 09:38 Dose: 40 mg Furosemide (Lasix -) 80 mg PO DAILY [facility] Last Admin: 03/07/18 09:37 Dose: 80 mg Guaifenesin (Robitussin -) 10 ml PO Q6H PRN PRN Reason: COUGH Last Admin: 03/06/18 22:53 Dose: 10 ml Metoprolol Tartrate (Lopressor Injection -) 5 mg IVPUSH Q4H PRN PRN Reason: HYPERTENSION Metoprolol Tartrate (Lopressor -) 25 mg PO BID [facility] Last Admin: 03/07/18 09:38 Dose: 25 mg Pantoprazole Sodium (Protonix -) 40 mg PO DAILY [facility] Last Admin: 03/07/18 09:38 Dose: 40 mg Spironolactone (Aldactone -) 25 mg PO DAILY [facility] Last Admin: 03/07/18 09:38 Dose: 25 mg Valsartan (Diovan -) 160 mg PO DAILY [facility] Last Admin: 03/07/18 09:38 Dose: 160 mg - Objective Vital Signs: Vital Signs Temperature 97.7 F 03/07/18 19:12 Pulse Rate 103 H 03/07/18 19:12 Respiratory Rate 20 03/07/18 19:12 Blood Pressure 110/67 03/07/18 19:12 O2 Sat by Pulse Oximetry (%) 95 03/07/18 10:00 Constitutional: Yes: Anxious Eyes: Yes: WNL HENT: Yes: WNL Neck: Yes: WNL Cardiovascular: Yes: S1, S2 Respiratory: Yes: Regular Gastrointestinal: Yes: Soft ...Rectal Exam: Yes: Deferred Genitourinary: No: Anuria Breast(s): Yes: WNL Musculoskeletal: Yes: Muscle Weakness Extremities: Yes: WNL Edema: No Integumentary: Yes: WNL Psychiatric: Yes: Alert, Oriented Labs: CBC, BMP 03/03/18 06:30 03/07/18 06:00 Abnormal Lab Results 03/07/18 06:00 Carbon Dioxide 34 H Anion Gap 7 L BUN 25 H Calcium 8.4 L Problem List - Problems (1) Anxiety Code(s): F41.9 - ANXIETY DISORDER, UNSPECIFIED (2) Hypertension Assessment/Plan: Now on valsartan, metoprolol; also on furosemide presently. Code(s): I10 - ESSENTIAL (PRIMARY) HYPERTENSION Qualifiers: Hypertension type: essential hypertension Qualified Code(s): I10 - Essential (primary) hypertension (3) Shortness of breath Assessment/Plan: improved. Code(s): R06.02 - SHORTNESS OF BREATH (4) Leukocytosis Assessment/Plan: f/u CBC Code(s): D72.829 - ELEVATED WHITE BLOOD CELL COUNT, UNSPECIFIED Qualifiers: Leukocytosis type: unspecified Qualified Code(s): D72.829 - Elevated white blood cell count, unspecified (5) Acute on chronic diastolic (congestive) heart failure Assessment/Plan: Improved (less SOB). CXR: no significant change. Improved LE swelling. TNI < 0.02 x 3 TSH WNL. F/u BUN/Cr, electrolytes, daily weight, Is and Os. Code(s): I50.33 - ACUTE ON CHRONIC DIASTOLIC (CONGESTIVE) HEART FAILURE (6) PSVT (paroxysmal supraventricular tachycardia) Code(s): I47.1 - SUPRAVENTRICULAR TACHYCARDIA
[2018-03-08 08:27] LABS: ANION GAP 7 (8-16); BLOOD UREA NITROGEN 25 mg/dL (7-18); CALCIUM 8.6 mg/dL (8.5-10.1); CHLORIDE 97 mmol/L (98-107); CO2 34 mmol/L (21-32); GLUCOSE,RANDOM 103 mg/dL (74-106); POTASSIUM 3.6 mmol/L (3.5-5.1); SODIUM 138 mmol/L (136-145)
[2018-03-08] MEDS ORDERED: SPIRONOLACTONE 25 MG TABLET (FP) PO SCH (10:00)
[2018-03-08] MEDS: VALSARTAN 160 MG TABLET (UD) PO SCH (10:08)
[2018-03-08] MEDS: FUROSEMIDE 40 MG TABLET (FP) PO SCH (10:08)
[2018-03-08] MEDS: ASPIRIN COATED 81 MG TABLET.EC PO SCH (10:09)
[2018-03-08] MEDS: ENOXAPARIN NA (PORCINE) 40 MG/0.4 ML DISP.SYRIN SQ SCH (10:09)
[2018-03-08] MEDS: METOPROLOL TARTRATE 25 MG TABLET (FP) PO SCH (10:09)
[2018-03-08] MEDS: PANTOPRAZOLE 40 MG TABLET (FP) PO SCH (10:09)
[2018-03-08 10:12] VITALS: PULSE 110
--- NOTE | 2018-03-08 11:05 | PN ---
Progress Note, Physician History of Present Illness: 87 [facility] with a PMH of HTN, HLD, presents to our ED c/o 1 week h/o productive (whitish sputum) cough, chest tightness, dyspnea on exertion as well as subjective fevers/chills. Patient notes she was evaluated by her PMD, Dr. Han, two weeks previous at which time she was treated for a viral URI as well as a UTI. Patient states she was treated with Bactrim for the UTI however cannot recall the name of the antibiotic she was prescribed for the URI. Patient notes she completed the entire antibiotic course of both medications. ROS is positive for decreased PO intake over the last 2 weeks as well as B/L foot swelling Pt says she never had leg swelling before. - Current Medication List Current Medications: Active Medications Acetaminophen (Tylenol -) 650 mg PO Q6H PRN PRN Reason: PAIN Last Admin: 03/05/18 21:11 Dose: 325 mg Aspirin (Ecotrin -) 81 mg PO DAILY [facility] Last Admin: 03/08/18 10:09 Dose: 81 mg Benzocaine/Menthol (Cepacol Lozenge -) 1 each MM PRN PRN PRN Reason: SORE THROAT Enoxaparin Sodium (Lovenox -) 40 mg SQ DAILY [facility] Last Admin: 03/08/18 10:09 Dose: 40 mg Furosemide (Lasix -) 80 mg PO DAILY [facility] Last Admin: 03/08/18 10:08 Dose: 80 mg Guaifenesin (Robitussin -) 10 ml PO Q6H PRN PRN Reason: COUGH Last Admin: 03/06/18 22:53 Dose: 10 ml Metoprolol Tartrate (Lopressor Injection -) 5 mg IVPUSH Q4H PRN PRN Reason: HYPERTENSION Metoprolol Tartrate (Lopressor -) 25 mg PO BID [facility] Last Admin: 03/08/18 10:09 Dose: 25 mg Pantoprazole Sodium (Protonix -) 40 mg PO DAILY [facility] Last Admin: 03/08/18 10:09 Dose: 40 mg Spironolactone (Aldactone -) 50 mg PO DAILY [facility] Last Admin: 03/08/18 10:09 Dose: 50 mg Valsartan (Diovan -) 160 mg PO DAILY [facility] Last Admin: 03/08/18 10:08 Dose: 160 mg - Objective Vital Signs: Vital Signs Temperature 97.9 F 03/08/18 06:21 Pulse Rate 110 H 03/08/18 10:12 Respiratory Rate 18 03/08/18 06:21 Blood Pressure 127/60 03/08/18 06:21 O2 Sat by Pulse Oximetry (%) 92 L 03/08/18 10:12 Eyes: Yes: WNL, Conjunctiva Clear, EOM Intact HENT: Yes: WNL, Atraumatic, Normocephalic Neck: Yes: WNL, Supple, Trachea Midline Cardiovascular: Yes: WNL, Regular Rate and Rhythm Respiratory: Yes: WNL, Regular, CTA Bilaterally Gastrointestinal: Yes: WNL, Normal Bowel Sounds Genitourinary: Yes: WNL Musculoskeletal: Yes: WNL Extremities: Yes: WNL Edema: No Integumentary: Yes: WNL Neurological: Yes: WNL, Alert, Oriented ...Motor Strength: WNL Psychiatric: Yes: WNL Labs: CBC, BMP 03/03/18 06:30 03/08/18 06:00 Assessment/Plan - Problems (1) Anxiety Code(s): F41.9 - ANXIETY DISORDER, UNSPECIFIED (2) Hypertension Assessment/Plan: Now on valsartan, metoprolol; also on furosemide presently. Code(s): I10 - ESSENTIAL (PRIMARY) HYPERTENSION Qualifiers: Hypertension type: essential hypertension Qualified Code(s): I10 - Essential (primary) hypertension (3) Shortness of breath Assessment/Plan: improved. Code(s): R06.02 - SHORTNESS OF BREATH (4) Leukocytosis Assessment/Plan: f/u CBC Code(s): D72.829 - ELEVATED WHITE BLOOD CELL COUNT, UNSPECIFIED Qualifiers: Leukocytosis type: unspecified Qualified Code(s): D72.829 - Elevated white blood cell count, unspecified (5) Acute on chronic diastolic (congestive) heart failure Assessment/Plan: Improved (less SOB). CXR: no significant change. Improved LE swelling. TNI < 0.02 x 3 TSH WNL. F/u BUN/Cr, electrolytes, daily weight, Is and Os. Code(s): I50.33 - ACUTE ON CHRONIC DIASTOLIC (CONGESTIVE) HEART FAILURE (6) PSVT (paroxysmal supraventricular tachycardia) Code(s): I47.1 - SUPRAVENTRICULAR TACHYCARDIA
[2018-03-08 12:28] VITALS: BP 100/60; TEMP 98.4
--- NOTE | 2018-03-08 13:48 | DS ---
Physical Examination Vital Signs: Vital Signs Temperature 98.4 F 03/08/18 10:00 Pulse Rate 110 H 03/08/18 10:12 Respiratory Rate 18 03/08/18 10:00 Blood Pressure 100/60 03/08/18 10:00 O2 Sat by Pulse Oximetry (%) 92 L 03/08/18 10:12 Constitutional: Yes: No Distress, Anxious Eyes: Yes: Conjunctiva Clear Neck: Yes: Supple Cardiovascular: Yes: Regular Rate and Rhythm Respiratory: Yes: Diminished Gastrointestinal: Yes: Soft Musculoskeletal: Yes: WNL Extremities: Yes: WNL Edema: No Neurological: Yes: WNL, Alert ...Motor Strength: WNL Psychiatric: Yes: WNL Labs: CBC, BMP 03/03/18 06:30 03/08/18 06:00 Discharge Summary Reason For Visit: CONGESTIVE HEART FAILURE Current Active Problems Anxiety (Acute) History of environmental allergies (Acute) History of kidney stones (Acute) Hypertension (Acute) Leukocytosis (Acute) Lipidemia (Acute) Osteoporosis (Acute) PSVT (paroxysmal supraventricular tachycardia) (Acute) Personal history UTI (Acute) Shortness of breath (Acute) Condition: Fair - Instructions Diet, Activity, Other Instructions: low salt diet Referrals: Dominic Han MD [Primary Care Provider] - Disposition: HOME - Home Medications Comprehensive Discharge Medication List: Ambulatory Orders Acetaminophen [Tylenol .Extra-Strength -] 500 mg PO Q6H PRN 02/17/15 Cholecalciferol (Vitamin D3) [Vitamin D3] 1,000 unit PO DAILY 02/17/15 Simvastatin 10 mg PO DAILY 02/17/15 Montelukast Sodium [Singulair] 10 mg PO HS 02/28/18 Aspirin Coated [Ecotrin -] 81 mg PO DAILY tablet.ec 03/08/18 Furosemide 80 mg PO DAILY #30 tablet 03/08/18 Metoprolol Succinate 50 mg PO DAILY #30 tab.er.24h 03/08/18 Spironolactone 25 gm MC DAILY #30 tab 03/08/18
== END 2018-03-08 14:33 | disposition home or self-care (01) | DRG 292 ==
LOC: JER 11:08 → JERBED 14:36 → J4S 19:06 → OBSVTOIN 19:12 → J7W 03-04 21:04
PROVIDERS: ADMIT Internal Medicine; ATTEND Internal Medicine
DX: I11.0 Hypertensive heart disease with heart failure (principal); I47.1 Supraventricular tachycardia; I50.23 Acute on chronic systolic (congestive) heart failure; J02.9 Acute pharyngitis, unspecified; D72.829 Elevated white blood cell count, unspecified; M81.0 Age-related osteoporosis without current pathological fracture; E78.5 Hyperlipidemia, unspecified; F41.9 Anxiety disorder, unspecified; E83.42 Hypomagnesemia; Z87.442 Personal history of urinary calculi; Z87.440 Personal history of urinary (tract) infections; Z85.3 Personal history of malignant neoplasm of breast; Z91.09 Other allergy status, other than to drugs and biological substances
CPT/HCPCS: 36415; 70450-TC; 71045-TC-FY; 80048; 80053; 80061; 81003; 81015; 82550; 82553; 82962; 83721; 83735; 83880; 84100; 84443; 84484; 85025; 87070; 87430; 93005; 93010; 93306-TC; 94761; 97116-GP; 97161-GP; 99283-25; G0378

== ENCOUNTER 2018-04-03 12:20 | Inpatient (IN) | payer OTHER ==
--- NOTE | 2018-04-03 12:43 | PDOC ---
History of Present Illness - General Chief Complaint: Edema Stated Complaint: PCP SENT Time Seen by Provider: 04/03/18 12:43 - History of Present Illness Initial Comments: 04/03/18 12:43 Ms. Bernabe is an 87 yo female w/ pmh of HTN, HLD, Osteoporosis, PSVT, UTI, CHF who presents for evaluation of a 1 month history of cough and shortness of breath. Ms. Bernabe also reports she has had bilateral leg swelling over the last few weeks and has been weaker / more sleepy than usual and that she has been having to sleep sitting up. The patient denies chest pain, headache and dizziness. Denies fever, chills, nausea, vomit, diarrhea and constipation. Denies dysuria, frequency, urgency and hematuria. Allergies: Sulfa drugs Past History - Past Medical History Allergies/Adverse Reactions: Allergies Allergy/AdvReac Type Severity Reaction Status Date / Time Sulfa (Sulfonamide Allergy Verified 04/03/18 12:37 Antibiotics) sulfa Allergy Uncoded 04/03/18 12:37 Home Medications: Ambulatory Orders Acetaminophen [Tylenol .Extra-Strength -] 500 mg PO Q6H PRN 02/17/15 Cholecalciferol (Vitamin D3) [Vitamin D3] 1,000 unit PO DAILY 02/17/15 Furosemide 80 mg PO DAILY #30 tablet 03/08/18 Metoprolol Succinate 50 mg PO DAILY #30 tab.er.24h 03/08/18 Spironolactone 25 gm MC DAILY #30 tab 03/08/18 COPD: No HTN: Yes Hypercholesterolemia: Yes Kidney Stones: Yes (lithotripsy) - Suicide/Smoking/Psychosocial Hx Smoking History: Never smoked Have you smoked in the past 12 months: No Information on smoking cessation initiated: No Hx Alcohol Use: No Drug/Substance Use Hx: No Substance Use Type: None Review of Systems - Review of Systems Comments:: 04/03/18 12:43 GENERAL/CONSTITUTIONAL: +Generalized weakness. No fever or chills. HEAD, EYES, EARS, NOSE AND THROAT: No change in vision. No ear pain or discharge. No sore throat. CARDIOVASCULAR: +Shortness of breath at rest. No chest pain. RESPIRATORY: +Baseline cough as described. Wheezing, or hemoptysis. GASTROINTESTINAL: No nausea, vomiting, diarrhea or constipation. GENITOURINARY: No dysuria, frequency, or change in urination. MUSCULOSKELETAL: +Leg swelling as described. No joint or muscle swelling or pain. No neck or back pain. SKIN: No rash NEUROLOGIC: No headache, vertigo, loss of consciousness, or change in strength/ sensation. ENDOCRINE: No increased thirst. No abnormal weight change HEMATOLOGIC/LYMPHATIC: No anemia, easy bleeding, or history of blood clots. ALLERGIC/IMMUNOLOGIC: No hives or skin allergy. *Physical Exam - Vital Signs Last Vital Signs Temp Pulse Resp BP Pulse Ox 97.5 F L 65 18 116/71 100 04/03/18 12:33 04/03/18 12:33 04/03/18 12:33 04/03/18 12:33 04/03/18 12:33 - Physical Exam Comments: 04/03/18 12:43 GENERAL: Awake, alert, and fully oriented, in no acute distress HEAD: No signs of trauma, normocephalic, atraumatic EYES: PERRLA, EOMI, sclera anicteric, conjunctiva clear ENT: Auricles normal inspection, hearing grossly normal, nares patent, oropharynx clear without exudates. Moist mucosa NECK: Normal ROM, supple, no lymphadenopathy, JVD, or masses LUNGS: No distress, speaks full sentences, clear to auscultation bilaterally HEART: Regular rate and rhythm, normal S1 and S2, no murmurs, rubs or gallops, peripheral pulses normal and equal bilaterally. ABDOMEN: Soft, nontender, normoactive bowel sounds. No guarding, no rebound. No masses EXTREMITIES: + 2+ Bilateral pedal edema. Normal range of motion, no edema. No clubbing or cyanosis. NEUROLOGICAL: Cranial nerves II through XII grossly intact. Normal speech, normal gait, no focal sensorimotor deficits SKIN: Warm, Dry, normal turgor, no rashes or lesions noted. ED Treatment Course - LABORATORY CBC & Chemistry Diagram: 04/03/18 14:10 04/03/18 14:10 Medical Decision Making - Medical Decision Making 04/03/18 15:59 Ms. Bernabe is an 87 yo female w/ pmh as described who presents for symptoms concerning for CHF exacerbation. White count of 20+ noted, CXR significant for increased fluid from last evaluation. Discussed patient with primary who will admit for further evaluation of CHF exacerbation / r/o infection. *DC/Admit/Observation/Transfer Diagnosis at time of Disposition: Shortness of breath CHF exacerbation Qualifiers: Heart failure type: unspecified Qualified Code(s): I50.9 - Heart failure, unspecified - Discharge Dispostion Admit: Yes - Referrals - Patient Instructions - Post Discharge Activity
[2018-04-03 14:18] LABS: BASO % 0.6 % (0-2.0); HEMATOCRIT 38.4 % (32.4-45.2); LYMPH % 1.8 % (8-40); MCH 32.5 pg (25.7-33.7); MCHC 33.9 g/dl (32.0-36.0); MEAN PLT VOLUME 7.8 fl (7.5-11.1); MONO % 4.4 % (3.8-10.2); NEUT % 93.2 % (42.8-82.8); PLATELET COUNT 572 K/MM3 (134-434); RDW 13.7 % (11.6-15.6); WHITE BLOOD COUNT 20.4 K/mm3 (4.0-10.0)
[2018-04-03 14:49] LABS: ALBUMIN 2.4 g/dl (3.4-5.0); ANION GAP 10 (8-16); BILIRUBIN,TOTAL 0.7 mg/dL (0.2-1.0); BLOOD UREA NITROGEN 53 mg/dL (7-18); CALCIUM 8.4 mg/dL (8.5-10.1); CHLORIDE 93 mmol/L (98-107); CO2 25 mmol/L (21-32); CREATININE 1.4 mg/dL (0.55-1.02); GLUCOSE,RANDOM 114 mg/dL (74-106); SGPT/ALT 44 U/L (12-78); SODIUM 128 mmol/L (136-145); TOT PROT 6.5 g/dl (6.4-8.2)
[2018-04-03 14:52] LABS: ALK PHOS 116 U/L (45-117)
[2018-04-03 14:53] LABS: SGOT/AST 45 U/L (15-37)
[2018-04-03 14:54] LABS: POTASSIUM 4.8 mmol/L (3.5-5.1)
[2018-04-03] MEDS ORDERED: FUROSEMIDE 40 MG/4 ML INJECTABLE VIAL IVPUSH ONE (15:52)
[2018-04-03] MEDS ORDERED: FUROSEMIDE 40 MG/4 ML INJECTABLE VIAL ONE (16:57)
--- NOTE | 2018-04-03 19:29 | HP ---
Admitting History and Physical - Primary Care Physician PCP: Dominic Han - Admission Chief Complaint: weakness, increased SOB History of Present Illness: 87 y/o F w/ Hx of Htn who had recently been admitted for new onset CHF some weeks ago; now has re-experienced progressive swelling of her legs and increased SOB, and weakness/malaise. She developed heart failure (CHF & diastolic dysf) in late February of this year, presenting with signs & Sx of volume overload. She was diuresed and her failure improved but never fully resolved. The pleural effusions receded as an OP but never dissipated. She gradually experienced renal adverse effects from the high dose diuretics she was discharged with but showed signs of fluid reaccumulation when the doses of Lasix and aldactone were reduced. The HR and BP were brought under control with use of Toprol XL (even when the ARB was put on hold due to rising Bun/Cr) alone. Her condition was further complicated by her complaints of diminished appetite, ongoing cough, BERRIOS. She denied and abd pains (but had loose BMs on discharge), n-v, CP, palpitations, sweats, dizziness (but felt weak when upright ), dysuria, rashes (but had "cold sores" on lips, and white patches on tip of tongue). History Source: Patient, Family Member Limitations to Obtaining History: No Limitations - Past Medical History Cardiovascular: Yes: CHF, HTN, Hyperlipdemia Pulmonary: Yes: Bronchitis Gastrointestinal: Yes: Other (swallowing difficulty) Renal/: Yes: Renal Inusuff, Renal Calculi, UTI Reproductive: Yes: Other (RICHARD) ...: No Heme/Onc: Yes: Cancer (old Hx of breast cancer (non active)), Other (elevated WBC) Infectious Disease: Yes: Other (Hx ESBL Uti) Psych: Yes: Anxiety ENT: Yes: Allergic Rhinitis, Sinusitis - Past Surgical History Past Surgical History: Yes: Hysterectomy - Smoking History Smoking history: Never smoked Have you smoked in the past 12 months: No - Alcohol/Substance Use Hx Alcohol Use: No History of Substance Use: reports: None - Social History Usual Living Arrangement: Yes: With Child History of Recent Travel: No Home Medications - Allergies Allergies/Adverse Reactions: Allergies Allergy/AdvReac Type Severity Reaction Status Date / Time Sulfa (Sulfonamide Allergy Verified 04/03/18 12:37 Antibiotics) sulfa Allergy Uncoded 04/03/18 12:37 - Home Medications Home Medications: Ambulatory Orders Acetaminophen [Tylenol .Extra-Strength -] 500 mg PO Q6H PRN 02/17/15 Cholecalciferol (Vitamin D3) [Vitamin D3] 1,000 unit PO DAILY 02/17/15 Furosemide 80 mg PO DAILY #30 tablet 03/08/18 Metoprolol Succinate 50 mg PO DAILY #30 tab.er.24h 03/08/18 Spironolactone 25 gm MC DAILY #30 tab 03/08/18 Multivitamin [Daily Multiple Vitamin] 1 tab PO DAILY 04/03/18 Family Disease History - Family Disease History Family History: Unremarkable Review of Systems - Review of Systems Constitutional: reports: Loss of Appetite, Malaise, Weakness Eyes: reports: No Symptoms HENT: reports: Hearing Loss, Other (not swallowing well; tongue irritation) Neck: reports: No Symptoms Cardiovascular: reports: Edema, Shortness of Breath Respiratory: reports: Cough, Exercise Intolerance, Orthopnea, PND, SOB on Exertion Gastrointestinal: reports: Abdominal Pain (when touches her stomach) Genitourinary: reports: No Symptoms Breasts: reports: No Symptoms Reported Musculoskeletal: reports: Joint Swelling Neurological: reports: Weakness Psychiatric: reports: Depression Physical Examination Vital Signs: Vital Signs Temperature 97.4 F L 04/03/18 18:56 Pulse Rate 83 04/03/18 18:56 Respiratory Rate 28 H 04/03/18 18:56 Blood Pressure 140/66 04/03/18 18:56 O2 Sat by Pulse Oximetry (%) 90 L 04/03/18 19:14 Constitutional: Yes: Anxious Eyes: Yes: Conjunctiva Clear, EOM Intact HENT: Yes: Normocephalic Neck: Yes: Supple Cardiovascular: Yes: Regular Rate and Rhythm (with occasional premature beat) Respiratory: Yes: Accessory Muscle Use (mild), Diminished (R>L bases) Gastrointestinal: Yes: Normal Bowel Sounds, Tenderness (without rebound; the tenderness is diffuse) ...Rectal Exam: Yes: Deferred Renal/: Yes: Oliguria Breast(s): Yes: Other (Rt atrophic; Lt old surg incision; neither with any masses/discharge) Extremities: Yes: Delayed Capillary Refill, Erythema (some toes) Edema: Yes Edema: LLE: 3+, RLE: 3+ Peripheral Pulses: Left Radial: 2+, Right Radial: 2+, Left Doralis Pedis: 0, Right Dorsalis Pedis: 0, Left Femoral: 3+, Right Femoral: 3+ Integumentary: Yes: WNL Neurological: Yes: Weakness ...Motor Strength: WNL Labs: CBC, BMP 04/03/18 14:10 04/03/18 14:10 Laboratory Tests 04/03/18 04/03/18 04/03/18 14:10 14:10 19:35 WBC 20.4 H D RBC 4.00 Hgb 13.0 Hct 38.4 MCV 96.0 MCH 32.5 MCHC 33.9 RDW 13.7 Plt Count 572 H MPV 7.8 Neutrophils % 93.2 H D Lymphocytes % 1.8 L D Monocytes % 4.4 Eosinophils % 0.0 D Basophils % 0.6 Sodium 128 L Potassium 4.8 Chloride 93 L Carbon Dioxide 25 Anion Gap 10 BUN 53 H Creatinine 1.4 H Creat Clearance w eGFR 35.57 Random Glucose 114 H Calcium 8.4 L Total Bilirubin 0.7 D AST 45 H ALT 44 Alkaline Phosphatase 116 Creatine Kinase 77 Troponin I < 0.02 Total Protein 6.5 Albumin 2.4 L Urine Color Yellow Urine Appearance Slcloudy Urine pH 5.0 Ur Specific [place] 1.012 Urine Protein Negative Urine Glucose (UA) Negative Urine Ketones Negative Urine Blood 1+ H Urine Nitrite Negative Urine Bilirubin Negative Urine Urobilinogen Negative Ur Leukocyte Esterase Trace Urine WBC (Auto) 6 Urine RBC (Auto) 1 Ur Epithelial Cells Rare Urine Mucus Rare Imaging - Results Chest X-ray: Report Reviewed Problem List - Problems (1) CHF exacerbation Assessment/Plan: Volume overloaded state with NL VS and troponin. Previously done echo showed no LV dysf. PLAN: IV diuresis; limit fluid intake; daily weights. Code(s): I50.9 - HEART FAILURE, UNSPECIFIED Qualifiers: Heart failure type: combined systolic and diastolic Qualified Code(s): I50.43 - Acute on chronic combined systolic (congestive) and diastolic ( congestive) heart failure (2) Leukocytosis Assessment/Plan: Likely to be a "leukemoid" reaction, 2nd to something else. She has no signs of outright infection or sepsis though some form of infective process cannot yet be r/o. May need further imaging. Check daily counts. Code(s): D72.829 - ELEVATED WHITE BLOOD CELL COUNT, UNSPECIFIED Qualifiers: Leukocytosis type: leukemoid reaction Qualified Code(s): D72.823 - Leukemoid reaction (3) Abdominal pain Assessment/Plan: as described; no associated n-v, diarrhea, gas, or bloatedness. Cause not clear ; may need imaging. Code(s): R10.9 - UNSPECIFIED ABDOMINAL PAIN Qualifiers: Abdominal location: generalized Qualified Code(s): R10.84 - Generalized abdominal pain (4) Lipidemia Assessment/Plan: has been off the statin by her decision. Code(s): E78.5 - HYPERLIPIDEMIA, UNSPECIFIED Qualifiers: Hyperlipidemia type: unspecified Qualified Code(s): E78.5 - Hyperlipidemia , unspecified (5) Hypertension with renal disease Assessment/Plan: in the back-drop of the onset of CHF. Not sure what component is due to pre- renal disease or actual instrinsic renal disease yet Code(s): I12.9 - HYPERTENSIVE CHRONIC KIDNEY DISEASE W STG 1-4/UNSP CHR KDNY (6) Swallowing difficulty Assessment/Plan: with certain things only; does npt have any problem swallowing liquids; may need [employer]RE [employer] WORKER evaluation. Code(s): R13.10 - DYSPHAGIA, UNSPECIFIED Qualifiers: Dysphagia type: unspecified Qualified Code(s): R13.10 - Dysphagia, unspecified (7) Candidiasis of mouth Assessment/Plan: cause unclear; but did not take to Nystatin s&S when she saw me last week. PLAN : diflucan 150mg X 1 Code(s): B37.0 - CANDIDAL STOMATITIS Assessment/Plan progressively frail 87 y/o F who has now signs of decompensated CHF, along with an elevated WBC count.
[2018-04-03] MEDS ORDERED: FLUCONAZOLE 100 MG TABLET (UD) PO ONE (20:00)
[2018-04-03 20:08] LABS: URINE APPEARANCE SLCLOUDY; URINE BILIRUBIN NEGATIVE (<2.0 mg/dL); URINE COLOR YELLOW; URINE GLUCOSE (UA) NEGATIVE (NEGATIVE); URINE KETONE NEGATIVE (NEGATIVE); URINE LEUK ESTERASE TRACE (NEGATIVE); URINE NITRITE NEGATIVE (NEGATIVE); URINE PROTEIN NEGATIVE (NEGATIVE); URINE UROBILINOGEN NEGATIVE mg/dL (0.2-1.0)
[2018-04-03 20:11] LABS: EPI CELLS RARE /HPF (FEW); URINE MUCUS RARE
[2018-04-03] MEDS: metoPROLOL SUCCINATE 25 MG TAB.SR.24H (FP) PO SCH (21:31)
[2018-04-04 08:00] LABS: HEMATOCRIT 35.9 % (32.4-45.2); HEMOGLOBIN 12.1 GM/dL (10.7-15.3); MCH 32.6 pg (25.7-33.7); MCHC 33.8 g/dl (32.0-36.0); MEAN CELL VOLUME 96.4 fl (80-96); MEAN PLT VOLUME 7.9 fl (7.5-11.1); PLATELET COUNT 549 K/MM3 (134-434); RBC 3.72 M/mm3 (3.60-5.2); RDW 13.7 % (11.6-15.6); WHITE BLOOD COUNT 16.9 K/mm3 (4.0-10.0)
[2018-04-04] MEDS: AMINO ACIDS/PROTEIN HYDROLYS 30 ML LIQUID.PKT PO SCH ×2 (08:22→17:08)
[2018-04-04 08:31] LABS: CHLORIDE 94 mmol/L (98-107); POTASSIUM 4.6 mmol/L (3.5-5.1); SODIUM 132 mmol/L (136-145)
[2018-04-04 09:02] LABS: ALK PHOS 95 U/L (45-117); ANION GAP 10 (8-16); BILIRUBIN,TOTAL 0.4 mg/dL (0.2-1.0); BLOOD UREA NITROGEN 48 mg/dL (7-18); CALCIUM 7.8 mg/dL (8.5-10.1); CO2 28 mmol/L (21-32); CREATININE 1.1 mg/dL (0.55-1.02); GLUCOSE,RANDOM 93 mg/dL (74-106); MAGNESIUM 2.5 mg/dL (1.8-2.4); N-TERMINAL BNP 3076.44 pg/ml (5-450); SGOT/AST 32 U/L (15-37); SGPT/ALT 36 U/L (12-78); TOT PROT 5.5 g/dl (6.4-8.2)
[2018-04-04] MEDS: FUROSEMIDE 40 MG/4 ML INJECTABLE VIAL IVPUSH SCH (09:48)
[2018-04-04] MEDS: ENOXAPARIN NA (PORCINE) 30 MG/0.3 ML DISP.SYRIN SQ SCH (09:48)
[2018-04-04] MEDS: MULTIVITAMINS (DAILY MVI) TABLET (FP) PO SCH (09:48)
[2018-04-04] MEDS: metoPROLOL SUCCINATE 25 MG TAB.SR.24H (FP) PO SCH ×2 (09:48→21:53)
--- NOTE | 2018-04-04 10:07 | EKG ---
Test Reason : Blood Pressure : / mmHG Vent. Rate : 075 BPM Atrial Rate : 241 BPM P-R Int : 000 ms QRS Dur : 082 ms QT Int : 374 ms P-R-T Axes : 056 016 012 degrees QTc Int : 417 ms Poor data quality. sinus rhythm but cannot adequately asses given poor quality ekg Confirmed by MD Isidoro, Cipriano ([id number]) on 04/04/2018 10:07:31 AM Referred By: Confirmed By:Cipriano Chaudhry MD
--- NOTE | 2018-04-04 16:24 | PN ---
Progress Note (short form) - Note Progress Note: ........................ medical note................. Current Medications Amino Acids (Prosource No Carb Liquid Pkt) 30 ml PO BID@0800,1730 [facility] Last Admin: 04/04/18 08:22 Dose: 30 ml Enoxaparin Sodium (Lovenox -) 30 mg SQ DAILY [facility] Last Admin: 04/04/18 09:48 Dose: 30 mg Furosemide (Lasix Injection -) 40 mg IVPUSH DAILY [facility] Last Admin: 04/04/18 09:48 Dose: 40 mg Levofloxacin (Levaquin -) 250 mg PO DAILY@0600 [facility] Last Admin: 04/04/18 11:02 Dose: 250 mg Metoprolol Succinate (Toprol Xl -) 25 mg PO BID [facility] Last Admin: 04/04/18 09:48 Dose: 25 mg Multivitamins/Minerals/Vitamin C (Tab-A-Vit -) 1 tab PO DAILY [facility] Last Admin: 04/04/18 09:48 Dose: 1 tab Laboratory Results - last 24 hr 04/03/18 04/04/18 04/04/18 19:35 06:15 06:15 WBC 16.9 H RBC 3.72 Hgb 12.1 Hct 35.9 MCV 96.4 H MCH 32.6 MCHC 33.8 RDW 13.7 Plt Count 549 H MPV 7.9 ESR Sodium 132 L Potassium 4.6 Chloride 94 L Carbon Dioxide 28 Anion Gap 10 BUN 48 H Creatinine 1.1 H Creat Clearance w eGFR 46.98 Random Glucose 93 Calcium 7.8 L Magnesium 2.5 H Total Bilirubin 0.4 D AST 32 ALT 36 Alkaline Phosphatase 95 Creatine Kinase 44 Troponin I < 0.02 B-Natriuretic Peptide 3076.44 H Total Protein 5.5 L Albumin 2.0 L TSH 1.19 Urine Color Yellow Urine Appearance Slcloudy Urine pH 5.0 Ur Specific [place] 1.012 Urine Protein Negative Urine Glucose (UA) Negative Urine Ketones Negative Urine Blood 1+ H Urine Nitrite Negative Urine Bilirubin Negative Urine Urobilinogen Negative Ur Leukocyte Esterase Trace Urine WBC (Auto) 6 Urine RBC (Auto) 1 Ur Epithelial Cells Rare Urine Mucus Rare 04/04/18 06:15 WBC RBC Hgb Hct MCV MCH MCHC RDW Plt Count MPV ESR 78 H Sodium Potassium Chloride Carbon Dioxide Anion Gap BUN Creatinine Creat Clearance w eGFR Random Glucose Calcium Magnesium Total Bilirubin AST ALT Alkaline Phosphatase Creatine Kinase Troponin I B-Natriuretic Peptide Total Protein Albumin TSH Urine Color Urine Appearance Urine pH Ur Specific [place] Urine Protein Urine Glucose (UA) Urine Ketones Urine Blood Urine Nitrite Urine Bilirubin Urine Urobilinogen Ur Leukocyte Esterase Urine WBC (Auto) Urine RBC (Auto) Ur Epithelial Cells Urine Mucus Vital Signs Period Temp Pulse Resp BP Sys/Adamson Pulse Ox Last 24 Hr 97.4 F-98.6 F 76-83 20-28 118-140/55-66 90-98 CC: weak; not eat too well ````````````````````````````````` skin--no acute lesions neck--no masses lungs--decreased BS at bases R>L heart--RR abd--soft, minimal non rebound tenderness ext--2-3plus edema neuro--dysphoric; speech is clear; thoughts well organized; cogntion grossly intact; mood flat ```````````````````````````````````` Summ > hypertensive heart dz--with CHF and azotemia; bNP > 3K; cardiac enzymes WnL; previous echo (done last month) showed fairly good Ej fraction; she is responding well to the IV Lasix alone; and has lost 2Lbs as of this AM, the legs are less swollen: PLAN: must receive IV lasix (as she is still in considerable failure) as long as the renal functions allow it; cont the BB; hold ARB until the renal function improves. > Leukocytosis--ESR at 78; cause unclear but WBC has dropped a bit, and she is afebrile and does not apear toxic: PLAN: will follow WbCount and will continue PO Levaquin for now; await C&S results. > eating difficulties--still c/o poor PO intake and difficulty swallowing as she did as OP. 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 > Oral thrush--received 1 x dose of Diflucan; now appears to have resolved > depression--with anxiety component; she does not want any anxiolytic or anti- depressants even though the benefits were explained to her. ~~~~~~~~~~~~~~~~~~~~~~~~~ (case discussed with son who is present) ~Dr Han Problem List - Problems (1) CHF exacerbation Code(s): I50.9 - HEART FAILURE, UNSPECIFIED Qualifiers: Heart failure type: combined systolic and diastolic Qualified Code(s): I50.43 - Acute on chronic combined systolic (congestive) and diastolic ( congestive) heart failure (2) Leukocytosis Code(s): D72.829 - ELEVATED WHITE BLOOD CELL COUNT, UNSPECIFIED Qualifiers: Leukocytosis type: leukemoid reaction Qualified Code(s): D72.823 - Leukemoid reaction (3) Abdominal pain Code(s): R10.9 - UNSPECIFIED ABDOMINAL PAIN Qualifiers: Abdominal location: generalized Qualified Code(s): R10.84 - Generalized abdominal pain (4) Lipidemia Code(s): E78.5 - HYPERLIPIDEMIA, UNSPECIFIED Qualifiers: Hyperlipidemia type: unspecified Qualified Code(s): E78.5 - Hyperlipidemia , unspecified (5) Hypertension with renal disease Code(s): I12.9 - HYPERTENSIVE CHRONIC KIDNEY DISEASE W STG 1-4/UNSP CHR KDNY (6) Swallowing difficulty Code(s): R13.10 - DYSPHAGIA, UNSPECIFIED Qualifiers: Dysphagia type: unspecified Qualified Code(s): R13.10 - Dysphagia, unspecified (7) Candidiasis of mouth Code(s): B37.0 - CANDIDAL STOMATITIS
[2018-04-05 09:11] LABS: HEMOGLOBIN 12.5 GM/dL (10.7-15.3); MCHC 34.1 g/dl (32.0-36.0)
[2018-04-05 09:23] LABS: HEMATOCRIT 36.7 % (32.4-45.2); MEAN CELL VOLUME 96.8 fl (80-96); PLATELET COUNT 534 K/MM3 (134-434); RBC 3.79 M/mm3 (3.60-5.2); RDW 14.1 % (11.6-15.6); WHITE BLOOD COUNT 15.5 K/mm3 (4.0-10.0)
--- NOTE | 2018-04-05 09:23 | CONSULT ---
Admitting History and Physical - Primary Care Physician PCP: Dominic Han - Admission History of Present Illness: Per EMR: Ms. Bernabe is an 87 yo female w/ pmh as described who presents for symptoms concerning for CHF exacerbation. White count of 20+ noted, CXR significant for increased fluid from last evaluation. Discussed patient with primary who will admit for further evaluation of CHF exacerbation / r/o infection. c/o poor PO intake and difficulty swallowing Oral thrush-1 x dose Diflucan; now appears to have resolved This is my first consult with Ms. Bernabe Pt reports dysphagia, with food sticking in chest, coming back up with early satiety. She has more difficulty with solid than liquids and reports that this started [address] Han reports time line is longer. She also c/o SOB and seems quite anxious. History Source: Patient, Medical Record Limitations to Obtaining History: No Limitations, Clinical Condition - Past Medical History Cardiovascular: Yes: CHF, HTN, Hyperlipdemia Pulmonary: Yes: Bronchitis Gastrointestinal: Yes: Other (swallowing difficulty) Renal/: Yes: Renal Inusuff, Renal Calculi, UTI ...: No Heme/Onc: Yes: Cancer (old Hx of breast cancer (non active)), Other (elevated WBC) Infectious Disease: Yes: Other (Hx ESBL Uti) Psych: Yes: Anxiety ENT: Yes: Allergic Rhinitis, Sinusitis - Past Surgical History Past Surgical History: Yes: Hysterectomy - Smoking History Smoking history: Never smoked Have you smoked in the past 12 months: No - Alcohol/Substance Use Hx Alcohol Use: No History of Substance Use: reports: None - Social History History of Recent Travel: No History - Admission Reason For Visit: ACUTE ON CHRONIC CHF,SOB - Diagnostics X-ray: Report Reviewed - General Mental Status: Alert and Oriented, Awake and Alert, Able to Follow Commands Attention: Intact Ability to Follow Directions: Good Head/Neck Control: WFL - Hearing Hearing: Impaired Hearing Aide: No Speech Evaluation - Communication Primary Language: [place] Communication: Yes: Within Normal Limits - Speech Production Able to Make Needs Known: Yes: WNL Intelligibility: Yes: WNL - Speech Characteristics Voice Loudness: Normal Voice Pitch: Yes: Normal Voice Phonatory-based Quality: Yes: Normal Speech Pattern: Normal Speech Clarity: < 100% Nasal Resonance: Normal Articulation: Yes: Precise - Language/Auditory Comprehension Follows: Yes: 2 Stage Simple Commands - Language/Verbal Expression Able to Respond to Simple Queries: Yes: WNL Able to Communicate Wants and Needs: Yes: WNL Functional Communication Status: Yes: WNL - Swallow Evaluation/Bedside Assessment Current Nutritional Intake: Soft, Thin Liquids Oral Secretions: Yes: WFL Dentition: Yes: Adequate Facial Symmetry at Rest: Symmetrical Facial Symmetry on Retraction: Symmetrical Facial Movement: Controlled Against Resistance Opening: Normal Against Resistance Closing: Normal Pucker Lips: Normal Smile: Normal Lingual Movement: Normal, Symmetric Lingual Speed of Movement: Normal Lingual Movement Strgth Against Opposition: Normal Lingual Movement Characteristics: Normal Velopharyngeal Movement: Normal Laryngeal Elevation: WFL Laryngeal Movement: Able to Palpate Rate of Intake: WFL Bolus Size: WFL Labial Seal: WFL Chewing: WFL Oral Prep Time: WFL A-P Transit: WFL Pocketing: None Timing of Swallow: WFL Coughing/Throat Clear: No Change in Voice: No Recommendations - Speech Evaluation, Impression/Plan Impression: r/o pharyngeal/esophageal dysphagia. - Dysphagia Impressions/Plan Dysphagia Impressions: Ongoing Evaluation *Silent aspiration: cannot be R/O at bedside Recommendations: SURJIT jin Esophagus
[2018-04-05 09:54] LABS: ANION GAP 10 (8-16); BLOOD UREA NITROGEN 49 mg/dL (7-18); CALCIUM 8.2 mg/dL (8.5-10.1); CHLORIDE 96 mmol/L (98-107); CO2 30 mmol/L (21-32); CREATININE 1.1 mg/dL (0.55-1.02); GLUCOSE,RANDOM 105 mg/dL (74-106); POTASSIUM 4.5 mmol/L (3.5-5.1); SODIUM 136 mmol/L (136-145)
[2018-04-05] MEDS: ENOXAPARIN NA (PORCINE) 30 MG/0.3 ML DISP.SYRIN SQ SCH (10:26)
[2018-04-05] MEDS: FUROSEMIDE 40 MG/4 ML INJECTABLE VIAL IVPUSH SCH (10:26)
[2018-04-05] MEDS: AMINO ACIDS/PROTEIN HYDROLYS 30 ML LIQUID.PKT PO SCH ×2 (10:26→17:25)
[2018-04-05] MEDS: metoPROLOL SUCCINATE 25 MG TAB.SR.24H (FP) PO SCH ×2 (10:26→21:12)
[2018-04-05] MEDS: MULTIVITAMINS (DAILY MVI) TABLET (FP) PO SCH (10:26)
--- NOTE | 2018-04-06 08:03 | PDOC ---
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 Denies any dietary indiscretions. She states she has been adherent to medication regimen. - Physicial Exam PE: GENERAL: Awake, alert, and fully oriented, in no acute distress HEAD: No signs of trauma EYES: PERRLA, EOMI, sclera anicteric, conjunctiva clear ENT: Auricles normal inspection, hearing grossly normal, nares patent, oropharynx clear without exudates. Moist mucosa NECK: Normal ROM, supple, no lymphadenopathy, JVD, or masses LUNGS: Breath sounds equal, good air entry B/L. +Crackles to lower 1/3 of B/L lungs. No wheezes. HEART: Regular rate and rhythm, normal S1 and S2, no murmurs, rubs or gallops ABDOMEN: Soft, nontender, normoactive bowel sounds. No guarding, no rebound. No masses EXTREMITIES: Normal range of motion. 3+ pitting edema to BLE. No clubbing or cyanosis. No cords, erythema, or tenderness NEUROLOGICAL: Cranial nerves II through XII grossly intact. Normal speech, normal gait SKIN: Warm, Dry, normal turgor, no rashes or lesions noted. - Medical Decision Making Pt presents with SOB, likely CHF exacerbation. Will plan for admission.
[2018-04-06 09:24] LABS: BASO % 0.5 % (0-2.0); HEMATOCRIT 38.6 % (32.4-45.2); HEMOGLOBIN 12.7 GM/dL (10.7-15.3); LYMPH % 2.9 % (8-40); MCH 32.1 pg (25.7-33.7); MCHC 32.9 g/dl (32.0-36.0); MEAN CELL VOLUME 97.4 fl (80-96); MEAN PLT VOLUME 7.8 fl (7.5-11.1); MONO % 7.2 % (3.8-10.2); NEUT % 89.4 % (42.8-82.8); PLATELET COUNT 497 K/MM3 (134-434); RBC 3.97 M/mm3 (3.60-5.2); RDW 14.1 % (11.6-15.6)
[2018-04-06 09:32] LABS: ANION GAP 9 (8-16); BLOOD UREA NITROGEN 53 mg/dL (7-18); CALCIUM 8.5 mg/dL (8.5-10.1); CHLORIDE 99 mmol/L (98-107); CO2 31 mmol/L (21-32); CREATININE 1.4 mg/dL (0.55-1.02); GLUCOSE,RANDOM 117 mg/dL (74-106); POTASSIUM 4.7 mmol/L (3.5-5.1); SODIUM 139 mmol/L (136-145)
[2018-04-06] MEDS: ENOXAPARIN NA (PORCINE) 30 MG/0.3 ML DISP.SYRIN SQ SCH (10:56)
[2018-04-06] MEDS: FUROSEMIDE 40 MG/4 ML INJECTABLE VIAL IVPUSH SCH (10:56)
[2018-04-06] MEDS: AMINO ACIDS/PROTEIN HYDROLYS 30 ML LIQUID.PKT PO SCH ×2 (10:56→17:41)
[2018-04-06] MEDS: MULTIVITAMINS (DAILY MVI) TABLET (FP) PO SCH (10:56)
[2018-04-06] MEDS: CARVEDILOL 6.25 MG TABLET (FP) PO SCH ×2 (10:56→21:54)
[2018-04-06 11:18] LABS: LDH 233 U/L (84-246)
--- NOTE | 2018-04-06 12:59 | PN ---
Progress Note, LINEN CHECKER - Note Progress Note: Selected Entries 04/05/18 04/05/18 04/05/18 06:00 10:00 15:48 Breakfast 25% Lunch 0 Temperature 98.0 F 98.2 F 98.2 F 04/05/18 04/06/18 20:07 07:30 Breakfast Lunch Temperature 97.4 F L 98.1 F Laboratory Tests 04/04/18 04/05/18 04/06/18 06:15 07:00 08:20 WBC 16.9 H 15.5 H 17.0 H
[2018-04-06 13:52] VITALS: BMI 21.1
--- NOTE | 2018-04-06 16:16 | PN ---
Progress Note (short form) - Note Progress Note: Medical Current Medications Amino Acids (Prosource No Carb Liquid Pkt) 30 ml PO BID@0800,1730 [facility] Last Admin: 04/06/18 10:56 Dose: 30 ml Carvedilol (Coreg -) 6.25 mg PO BID [facility] Last Admin: 04/06/18 10:56 Dose: 6.25 mg Enoxaparin Sodium (Lovenox -) 30 mg SQ DAILY [facility] Last Admin: 04/06/18 10:56 Dose: 30 mg Furosemide (Lasix Injection -) 20 mg IVPUSH DAILY [facility] Last Admin: 04/06/18 10:56 Dose: 20 mg Multivitamins/Minerals/Vitamin C (Tab-A-Vit -) 1 tab PO DAILY [facility] Last Admin: 04/06/18 10:56 Dose: 1 tab Laboratory Results - last 24 hr 04/06/18 04/06/18 04/06/18 08:20 08:20 08:20 WBC 17.0 H RBC 3.97 Hgb 12.7 Hct 38.6 MCV 97.4 H MCH 32.1 MCHC 32.9 RDW 14.1 Plt Count 497 H MPV 7.8 Neutrophils % 89.4 H Lymphocytes % 2.9 L D Monocytes % 7.2 Eosinophils % 0.0 Basophils % 0.5 Sodium 139 Potassium 4.7 Chloride 99 Carbon Dioxide 31 Anion Gap 9 BUN 53 H Creatinine 1.4 H Random Glucose 117 H Calcium 8.5 LD Total 233 Cancelled Vital Signs Temperature 98.4 F 04/06/18 14:54 Pulse Rate 84 04/06/18 14:54 Respiratory Rate 18 04/06/18 14:54 Blood Pressure 90/51 04/06/18 14:54 O2 Sat by Pulse Oximetry (%) 94 L 04/04/18 21:00 CC: weak; not eat well ````````````````````````````````` skin--no acute lesions neck--no masses lungs--decreased BS at bases R>L heart--RR abd--soft, minimal non rebound tenderness ext--2-3plus edema R>L neuro--dysphoric; speech is clear; thoughts well organized; cogntion grossly intact; mood flat ```````````````````````````````````` Summ > hypertensive heart dz--with CHF and azotemia; bNP > 3K; cardiac enzymes WnL; previous echo (done last month) showed fairly good Ej fraction; she is responding well to the IV Lasix alone but has now noted some rise in Bun/cr; Lasix dose cut to 20mg; the legs are less swollen since admission and the Lt lung base is much clearer: PLAN: on receive IV lasix (as she is still in considerable failure) as long as the renal functions allow it; change to Coreg. > Leukocytosis--ESR at 78; CRP at 18; spiked to 17K; she remains afebrile and does not apear toxic: PLAN: add SPEP; stop PO Levaquin; CT of chest; abd; pelvis ; ID consult. > eating difficulties--MBS essentially benign; ENT consult called > hyponatremia--now improved; adjust to low sodium diet. > Oral thrush--resolved > depression--with anxiety component; she does not want any anxiolytic or anti- depressants even though the benefits were explained to her. ~~~~~~~~~~~~~~~~~~~~~~~~~ (case rediscussed with son who is present) ~Dr Han Problem List - Problems (1) CHF exacerbation Code(s): I50.9 - HEART FAILURE, UNSPECIFIED Qualifiers: Heart failure type: combined systolic and diastolic Qualified Code(s): I50.43 - Acute on chronic combined systolic (congestive) and diastolic ( congestive) heart failure (2) Leukocytosis Code(s): D72.829 - ELEVATED WHITE BLOOD CELL COUNT, UNSPECIFIED Qualifiers: Leukocytosis type: leukemoid reaction Qualified Code(s): D72.823 - Leukemoid reaction (3) Abdominal pain Code(s): R10.9 - UNSPECIFIED ABDOMINAL PAIN Qualifiers: Abdominal location: generalized Qualified Code(s): R10.84 - Generalized abdominal pain (4) Lipidemia Code(s): E78.5 - HYPERLIPIDEMIA, UNSPECIFIED Qualifiers: Hyperlipidemia type: unspecified Qualified Code(s): E78.5 - Hyperlipidemia , unspecified (5) Hypertension with renal disease Code(s): I12.9 - HYPERTENSIVE CHRONIC KIDNEY DISEASE W STG 1-4/UNSP CHR KDNY (6) Swallowing difficulty Code(s): R13.10 - DYSPHAGIA, UNSPECIFIED Qualifiers: Dysphagia type: unspecified Qualified Code(s): R13.10 - Dysphagia, unspecified (7) Candidiasis of mouth Code(s): B37.0 - CANDIDAL STOMATITIS
--- NOTE | 2018-04-06 18:25 | CON.ENT ---
Consult Consult Specialty:: ENT Referred by:: Dr. Han Reason for Consultation:: dysphagia - History of Present Illness Chief Complaint: trouble swallowing History of Present Illness: 87 yo F with acute shortness of breath, has CHF and pleural effusions notes trouble swallowing, reports only for one week, denies prior throat problems no pain, states food gets stuck ?in chest and sometimes comes up modified barium swallow shows functional swallowing for solids and liquids, trace penetration noted. GI consultation considered - History Source History Provided By: Patient, Medical Record Limitations to Obtaining History: Clinical Condition - Past Medical History Cardio/Vascular: Yes: CHF, HTN, Hyperlipdemia Pulmonary: Yes: Bronchitis Gastrointestinal: Yes: Other (swallowing difficulty) Renal/: Yes: Renal Inusuff, Renal Calculi, UTI ...: No Infectious Disease: Yes: Other (Hx ESBL Uti) Psych: Yes: Anxiety ENT: Yes: Allergic Rhinitis, Sinusitis - Past Surgical History Past Surgical History: Yes: Hysterectomy - Alcohol/Substance Use Hx Alcohol Use: No History of Substance Use: reports: None - Smoking History Smoking history: Never smoked Have you smoked in the past 12 months: No - Social History History of Recent Travel: No Home Medications - Allergies Allergies/Adverse Reactions: Allergies Allergy/AdvReac Type Severity Reaction Status Date / Time Sulfa (Sulfonamide Allergy Verified 04/03/18 12:37 Antibiotics) sulfa Allergy Uncoded 04/03/18 12:37 - Home Medications Home Medications: Ambulatory Orders Acetaminophen [Tylenol .Extra-Strength -] 500 mg PO Q6H PRN 02/17/15 Cholecalciferol (Vitamin D3) [Vitamin D3] 1,000 unit PO DAILY 02/17/15 Furosemide 80 mg PO DAILY #30 tablet 03/08/18 Metoprolol Succinate 50 mg PO DAILY #30 tab.er.24h 03/08/18 Spironolactone 25 gm MC DAILY #30 tab 03/08/18 Multivitamin [Daily Multiple Vitamin] 1 tab PO DAILY 04/03/18 Family Disease History - Family Disease History Family History: Unable to Obtain Physical Exam-ENT Vital Signs: Vital Signs Temperature 98.4 F 04/06/18 14:54 Pulse Rate 84 04/06/18 14:54 Respiratory Rate 18 04/06/18 14:54 Blood Pressure 90/51 04/06/18 14:54 O2 Sat by Pulse Oximetry (%) 94 L 04/06/18 09:00 Constitutional: Yes: No Distress, Calm, Thin Head: Yes: WNL Face: Yes: WNL Eyes: Yes: WNL Nose: Yes: Other (nasal cannulae, dry anterior mucosa, no bleeding) Oral/Pharynx: Yes: Other (good opening, tongue mobile, no obvious lesions, oropharynx clear, patent, no obstruction, voice clear and strong, no stridor or respiratory distress) Ear Canal: Yes: Cerumen (impacted cerumen right) Tympanic Membrane: Yes: WNL (normal left; not visualized right) Neck: Yes: WNL, Trachea Midline, Other (thin, no mass or nodes, trachea midline ) Imaging - Results Chest X-ray: Report Reviewed, Image Reviewed (bilateral pleural effusions) Problem List - Problems (1) Swallowing difficulty Assessment/Plan: pt reports trouble swallowing for one week medical record suggests this may for a significantly longer period of time. modified barium swallow shows adequate swallowing function flexible laryngoscopy deferred this evening as pt is just starting her dinner. cerumen impaction - remove in future dry nose (from oxygen) without bleeding - saline spray advised Recommend: precautions as per Mercedes Anaya concur with GI consultation Thank you for consultation Tremayne Toth MD FACS Code(s): R13.10 - DYSPHAGIA, UNSPECIFIED Qualifiers: Dysphagia type: unspecified Qualified Code(s): R13.10 - Dysphagia, unspecified
--- NOTE | 2018-04-06 18:38 | CON.ID ---
Consult Consult Specialty:: infectious disease Referred by:: dr vincent Reason for Consultation:: leukocytosis - History of Present Illness Chief Complaint: worsening weakness and SOB History of Present Illness: +weight loss discomfort when she swallows no fevers no travel no sick contacts no nausea or diarrhea no constipation or diarrhea - History Source History Provided By: Patient Limitations to Obtaining History: Clinical Condition - Past Medical History Cardio/Vascular: Yes: CHF, HTN, Hyperlipdemia Pulmonary: Yes: Bronchitis Gastrointestinal: Yes: Other (swallowing difficulty) Renal/: Yes: Renal Inusuff, Renal Calculi, UTI ...: No Infectious Disease: Yes: Other (Hx ESBL Uti) Psych: Yes: Anxiety ENT: Yes: Allergic Rhinitis, Sinusitis - Past Surgical History Past Surgical History: Yes: Hysterectomy - Alcohol/Substance Use Hx Alcohol Use: No History of Substance Use: reports: None - Smoking History Smoking history: Never smoked Have you smoked in the past 12 months: No - Social History Usual Living Arrangement: With Child ADL: Independent [facility] of : [facility]) History of Recent Travel: No Home Medications - Allergies Allergies/Adverse Reactions: Allergies Allergy/AdvReac Type Severity Reaction Status Date / Time Sulfa (Sulfonamide Allergy Verified 04/03/18 12:37 Antibiotics) sulfa Allergy Uncoded 04/03/18 12:37 - Home Medications Home Medications: Ambulatory Orders Acetaminophen [Tylenol .Extra-Strength -] 500 mg PO Q6H PRN 02/17/15 Cholecalciferol (Vitamin D3) [Vitamin D3] 1,000 unit PO DAILY 02/17/15 Furosemide 80 mg PO DAILY #30 tablet 03/08/18 Metoprolol Succinate 50 mg PO DAILY #30 tab.er.24h 03/08/18 Spironolactone 25 gm MC DAILY #30 tab 03/08/18 Multivitamin [Daily Multiple Vitamin] 1 tab PO DAILY 04/03/18 Review of Systems - Review of Systems Constitutional: reports: Unintentional Wgt. Loss, Weakness Eyes: reports: No Symptoms HENT: reports: No Symptoms Neck: reports: No Symptoms Cardiovascular: reports: Edema Respiratory: reports: SOB Gastrointestinal: reports: No Symptoms Genitourinary: reports: No Symptoms Musculoskeletal: reports: No Symptoms Integumentary: reports: No Symptoms Physical Exam Vital Signs: Vital Signs Temperature 98.4 F 04/06/18 14:54 Pulse Rate 84 04/06/18 14:54 Respiratory Rate 18 04/06/18 14:54 Blood Pressure 90/51 04/06/18 14:54 O2 Sat by Pulse Oximetry (%) 94 L 04/06/18 09:00 Constitutional: Yes: Calm, Thin Eyes: Yes: Conjunctiva Clear HENT: No: Thrush Neck: Yes: Supple Cardiovascular: Yes: Regular Rate and Rhythm Respiratory: Yes: Regular, Other (decresed bs at bases) Gastrointestinal: Yes: Normal Bowel Sounds, Soft ...Rectal Exam: Yes: Deferred Extremities: Yes: Other (trace edema) Edema: No Psychiatric: Yes: Alert Labs: CBC, BMP 04/06/18 08:20 04/06/18 08:20 Imaging - Results Chest X-ray: Report Reviewed, Image Reviewed Problem List - Problems (1) Leukocytosis Code(s): D72.829 - ELEVATED WHITE BLOOD CELL COUNT, UNSPECIFIED Qualifiers: Leukocytosis type: leukemoid reaction Qualified Code(s): D72.823 - Leukemoid reaction (2) CHF exacerbation Code(s): I50.9 - HEART FAILURE, UNSPECIFIED Qualifiers: Heart failure type: combined systolic and diastolic Qualified Code(s): I50.43 - Acute on chronic combined systolic (congestive) and diastolic ( congestive) heart failure Assessment/Plan agree with workup including ct scan c/a/p may need to get GI involved as well has mid sternal chest discomfort when she eats ?malignancy doubt pneumonia- no improvement with levaquin, agree with d/c antibiotics and observe
[2018-04-07 08:57] LABS: HEMATOCRIT 37.9 % (32.4-45.2); HEMOGLOBIN 12.3 GM/dL (10.7-15.3); MCH 31.8 pg (25.7-33.7); MCHC 32.4 g/dl (32.0-36.0); MEAN PLT VOLUME 7.9 fl (7.5-11.1); PLATELET COUNT 486 K/MM3 (134-434); RBC 3.87 M/mm3 (3.60-5.2); RDW 14.1 % (11.6-15.6)
[2018-04-07 09:33] LABS: ANION GAP 10 (8-16); BLOOD UREA NITROGEN 66 mg/dL (7-18); CALCIUM 8.3 mg/dL (8.5-10.1); CHLORIDE 100 mmol/L (98-107); CO2 30 mmol/L (21-32); GLUCOSE,RANDOM 102 mg/dL (74-106); POTASSIUM 4.8 mmol/L (3.5-5.1); SODIUM 140 mmol/L (136-145)
[2018-04-07 09:35] LABS: CREATININE 1.5 mg/dL (0.55-1.02)
[2018-04-07] MEDS: CARVEDILOL 3.125 MG TABLET (FP) PO SCH ×2 (11:06→21:06)
[2018-04-07] MEDS: MULTIVITAMINS (DAILY MVI) TABLET (FP) PO SCH (11:07)
[2018-04-07] MEDS: AMINO ACIDS/PROTEIN HYDROLYS 30 ML LIQUID.PKT PO SCH ×2 (11:07→17:51)
[2018-04-07] MEDS: FUROSEMIDE 40 MG/4 ML INJECTABLE VIAL IVPUSH SCH (11:13)
[2018-04-07] MEDS: ENOXAPARIN NA (PORCINE) 30 MG/0.3 ML DISP.SYRIN SQ SCH (11:13)
--- NOTE | 2018-04-07 12:55 | PN ---
Progress Note (short form) - Note Progress Note: ENT +leukocytosis, ID consultation reviewed pt had c/o chest discomfort with eating had CT scan of abdomen today, results pending PE NAD voice clear, strong, no stridor or respiratory distress no active cough will try her lunch tray today concur with GI consultation await CT abdomen results Tremayne Toth MD Problem List - Problems (1) Swallowing difficulty Code(s): R13.10 - DYSPHAGIA, UNSPECIFIED Qualifiers: Dysphagia type: unspecified Qualified Code(s): R13.10 - Dysphagia, unspecified
--- NOTE | 2018-04-07 14:58 | PN ---
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 ENT consult appreciated. PO as tolerated. Case reviewed with pt's son. Appetite stimulant discussed with PMD. Pending results of CT. GI consult.
--- NOTE | 2018-04-07 17:48 | PN ---
Progress Note (short form) - Note Progress Note: ~~~~~~~~~~~~~~ Medical note ~~~~~~~~~~~~~~~~~~ Current Medications Amino Acids (Prosource No Carb Liquid Pkt) 30 ml PO BID@0800,1730 [facility] Last Admin: 04/07/18 11:07 Dose: Not Given Carvedilol (Coreg -) 3.125 mg PO BID [facility] Last Admin: 04/07/18 11:06 Dose: Not Given Enoxaparin Sodium (Lovenox -) 30 mg SQ DAILY [facility] Last Admin: 04/07/18 11:13 Dose: 30 mg Furosemide (Lasix Injection -) 20 mg IVPUSH DAILY [facility] Last Admin: 04/07/18 11:13 Dose: 20 mg Multivitamins/Minerals/Vitamin C (Tab-A-Vit -) 1 tab PO DAILY [facility] Last Admin: 04/07/18 11:07 Dose: Not Given Laboratory Results - last 24 hr 04/07/18 04/07/18 07:45 07:45 WBC 18.0 H RBC 3.87 Hgb 12.3 Hct 37.9 MCV 98.0 H MCH 31.8 MCHC 32.4 RDW 14.1 Plt Count 486 H MPV 7.9 Sodium 140 Potassium 4.8 Chloride 100 Carbon Dioxide 30 Anion Gap 10 BUN 66 H Creatinine 1.5 H Random Glucose 102 Calcium 8.3 L Vital Signs Temperature 97.9 F 04/07/18 13:35 Pulse Rate 81 04/07/18 13:35 Respiratory Rate 20 04/07/18 13:35 Blood Pressure 119/64 04/07/18 13:35 O2 Sat by Pulse Oximetry (%) 94 L 04/06/18 21:00 CC: weak ````````````````````````````````` skin--no acute lesions; IV site clean neck--no masses lungs--decreased BS at bases R>L heart--RR abd--soft, minimal non rebound tenderness ext--2-3plus edema R>L neuro--asthenic & dysphoric; speech is clear; thoughts well organized; cogntion grossly intact; mood flat ```````````````````````````````````` Summ > pleural effusions--and associated volume excess; not responding greatly to IV Lasix without impacting on the renal function; PLAN: will hold Lasix for now, at least until the US is done. > adnexal mass--as described by CT (of uncertain nature, but likely of a malignant nature) with some ascities. Bilat hydronephrosis also seen. PLAN: will get abd/pelvic sono; check ca-125; > hypertensive heart dz--bNP > 3K; cardiac enzymes WnL; previous echo (done last month) showed fairly good Ej fraction. Chest CT shows notable effusions but no CHF; also a lesion is identified on the anterior chest wall close to the surface; cont BB for now > Leukocytosis--ESR at 78; CRP at 18; she remains afebrile and does not apear toxic; Leukemoid Rxn that may possibly be related to the newly identified lesions in the pelvis/abd as described. Observe off Abs > depression--with anxiety component; she does not want any anxiolytic or anti- depressants even though the benefits were explained to her. ~~~~~~~~~~~~~~~~~~~~~~~~~ (case rediscussed with son who is present) ~Dr Han Problem List - Problems (1) CHF exacerbation Code(s): I50.9 - HEART FAILURE, UNSPECIFIED Qualifiers: Heart failure type: combined systolic and diastolic Qualified Code(s): I50.43 - Acute on chronic combined systolic (congestive) and diastolic ( congestive) heart failure (2) Leukocytosis Code(s): D72.829 - ELEVATED WHITE BLOOD CELL COUNT, UNSPECIFIED Qualifiers: Leukocytosis type: leukemoid reaction Qualified Code(s): D72.823 - Leukemoid reaction (3) Abdominal pain Code(s): R10.9 - UNSPECIFIED ABDOMINAL PAIN Qualifiers: Abdominal location: generalized Qualified Code(s): R10.84 - Generalized abdominal pain (4) Lipidemia Code(s): E78.5 - HYPERLIPIDEMIA, UNSPECIFIED Qualifiers: Hyperlipidemia type: unspecified Qualified Code(s): E78.5 - Hyperlipidemia , unspecified (5) Hypertension with renal disease Code(s): I12.9 - HYPERTENSIVE CHRONIC KIDNEY DISEASE W STG 1-4/UNSP CHR KDNY (6) Swallowing difficulty Code(s): R13.10 - DYSPHAGIA, UNSPECIFIED Qualifiers: Dysphagia type: unspecified Qualified Code(s): R13.10 - Dysphagia, unspecified (7) Candidiasis of mouth Code(s): B37.0 - CANDIDAL STOMATITIS
[2018-04-07] MEDS ORDERED: FUROSEMIDE 40 MG/4 ML INJECTABLE VIAL IVPUSH ONE (20:45)
[2018-04-08 08:06] LABS: HEMATOCRIT 39.9 % (32.4-45.2); HEMOGLOBIN 13.1 GM/dL (10.7-15.3); MCH 32.3 pg (25.7-33.7); MCHC 32.8 g/dl (32.0-36.0); MEAN CELL VOLUME 98.4 fl (80-96); MEAN PLT VOLUME 8.1 fl (7.5-11.1); PLATELET COUNT 530 K/MM3 (134-434); RBC 4.05 M/mm3 (3.60-5.2); RDW 14.5 % (11.6-15.6); WHITE BLOOD COUNT 18.9 K/mm3 (4.0-10.0)
[2018-04-08 08:34] LABS: CHLORIDE 100 mmol/L (98-107); POTASSIUM 5.3 mmol/L (3.5-5.1); SODIUM 142 mmol/L (136-145)
[2018-04-08 09:05] LABS: ALBUMIN 2.1 g/dl (3.4-5.0); ALK PHOS 89 U/L (45-117); ANION GAP 10 (8-16); BILIRUBIN,TOTAL 0.8 mg/dL (0.2-1.0); BLOOD UREA NITROGEN 77 mg/dL (7-18); CALCIUM 8.5 mg/dL (8.5-10.1); CO2 32 mmol/L (21-32); CREATININE 1.6 mg/dL (0.55-1.02); GLUCOSE,RANDOM 100 mg/dL (74-106); SGOT/AST 27 U/L (15-37); SGPT/ALT 34 U/L (12-78)
[2018-04-08] MEDS: ENOXAPARIN NA (PORCINE) 30 MG/0.3 ML DISP.SYRIN SQ SCH (11:32)
[2018-04-08] MEDS: CARVEDILOL 3.125 MG TABLET (FP) PO SCH ×2 (11:33→22:03)
[2018-04-08] MEDS: AMINO ACIDS/PROTEIN HYDROLYS 30 ML LIQUID.PKT PO SCH ×2 (11:33→18:02)
[2018-04-08] MEDS: MULTIVITAMINS (DAILY MVI) TABLET (FP) PO SCH (11:45)
[2018-04-08] MEDS ORDERED: NITROGLYCERIN 2% OINTMENT - 1GM PACKET TD ONE (13:17)
[2018-04-08] MEDS ORDERED: SODIUM POLYSTYRENE SULFONATE 15 GM/60 ML BOTTLE PO ONE (13:39)
--- NOTE | 2018-04-08 13:39 | PN ---
Progress Note (short form) - Note Progress Note: ^^^^^^^^^^^^^^^^ medical note ^^^^^^^^^^^^^^ Current Medications Amino Acids (Prosource No Carb Liquid Pkt) 30 ml PO BID@0800,1730 [facility] Last Admin: 04/08/18 11:33 Dose: Not Given Carvedilol (Coreg -) 3.125 mg PO BID [facility] Last Admin: 04/08/18 11:33 Dose: 3.125 mg Enoxaparin Sodium (Lovenox -) 30 mg SQ DAILY [facility] Last Admin: 04/08/18 11:32 Dose: 30 mg Laboratory Results - last 24 hr 04/06/18 04/08/18 04/08/18 10:00 06:15 06:15 WBC 18.9 H RBC 4.05 Hgb 13.1 Hct 39.9 MCV 98.4 H MCH 32.3 MCHC 32.8 RDW 14.5 Plt Count 530 H MPV 8.1 Sodium 142 Potassium 5.3 H Chloride 100 Carbon Dioxide 32 Anion Gap 10 BUN 77 H Creatinine 1.6 H Creat Clearance w eGFR 30.49 Random Glucose 100 Calcium 8.5 Total Bilirubin 0.8 D AST 27 ALT 34 Alkaline Phosphatase 89 Total Protein 6.0 L Total Protein (PEP) 5.9 L Albumin 2.1 L Albumin (PEP) 2.3 L Globulin 3.6 Albumin/Globulin Ratio 0.6 L Beta Globulins 0.8 LIN M-Alvaro Not observed Vital Signs Period Temp Pulse Resp BP Sys/Adamson Pulse Ox Last 24 Hr 97.4 F-97.9 F 81-90 20-40 118-135/56-74 92 CC: weak ````````````````````````````````` skin--no acute lesions; IV site clean neck--no masses lungs--decreased BS at bases R>L heart--RR abd--soft, minimal non rebound tenderness ext--2-3plus edema neuro--asthenic & dysphoric; speech is clear; thoughts well organized; cognition grossly intact; mood flat ```````````````````````````````````` US (unofficial)--bilat hydronephrosis ``````````````````````````````````` Summ > renal failure--Bun notably higher each day; with added rise in creat; US & CT both show bilat hydro. Spoke with Urology (dr Dupree) who will try to place ureteral stents > pleural effusions--nature? 2nd malignancy; not responding greatly to IV Lasix without impacting on the renal function; PLAN: will need ureteral stenting to see if we can get better fluid off loading. > adnexal mass--as described by CT (of uncertain nature, but likely of a malignant nature) with some ascities. Bilat hydronephrosis also seen. PLAN: check ca-125; may need tissue Bx to ascertain Diagnosis > hypertensive heart dz--bNP > 3K; cardiac enzymes WnL; previous echo (done last month) showed fairly good Ej fraction. Chest CT shows notable effusions but no CHF; also a lesion is identified on the anterior chest wall close to the surface; cont BB for now > Leukocytosis--ESR at 78; CRP at 18; she remains afebrile and does not apear toxic; Leukemoid Rxn that may possibly be related to the newly identified lesions in the pelvis/abd as described. Observe off Abs > depression--with anxiety component; she does not want any anxiolytic or anti- depressants even though the benefits were explained to her. ~~~~~~~~~~~~~~~~~~~~~~~~~ (case rediscussed with son via phone) ~Dr Han Problem List - Problems (1) CHF exacerbation Code(s): I50.9 - HEART FAILURE, UNSPECIFIED Qualifiers: Heart failure type: combined systolic and diastolic Qualified Code(s): I50.43 - Acute on chronic combined systolic (congestive) and diastolic ( congestive) heart failure (2) Leukocytosis Code(s): D72.829 - ELEVATED WHITE BLOOD CELL COUNT, UNSPECIFIED Qualifiers: Leukocytosis type: leukemoid reaction Qualified Code(s): D72.823 - Leukemoid reaction (3) Abdominal pain Code(s): R10.9 - UNSPECIFIED ABDOMINAL PAIN Qualifiers: Abdominal location: generalized Qualified Code(s): R10.84 - Generalized abdominal pain (4) Lipidemia Code(s): E78.5 - HYPERLIPIDEMIA, UNSPECIFIED Qualifiers: Hyperlipidemia type: unspecified Qualified Code(s): E78.5 - Hyperlipidemia , unspecified (5) Hypertension with renal disease Code(s): I12.9 - HYPERTENSIVE CHRONIC KIDNEY DISEASE W STG 1-4/UNSP CHR KDNY (6) Swallowing difficulty Code(s): R13.10 - DYSPHAGIA, UNSPECIFIED Qualifiers: Dysphagia type: unspecified Qualified Code(s): R13.10 - Dysphagia, unspecified (7) Candidiasis of mouth Code(s): B37.0 - CANDIDAL STOMATITIS
--- NOTE | 2018-04-08 16:39 | PN ---
Progress Note (short form) - Note Progress Note: generally weak no complaints ct scns- bilatral effusions and stelectasisi, bilateral hydro multiple soft tiusse masses (chest and abd) Vital Signs Period Temp Pulse Resp BP Sys/Adamson Pulse Ox Last 24 Hr 97.4 F-98.9 F 85-98 18-40 95-135/56-74 92 cor-rrr lungs decreased bs at ases abd soft,nt ext +edema CBC, BMP 04/08/18 06:15 Microbiology 04/03/18 16:09 Blood - Peripheral Venous Blood Culture - Preliminary NO GROWTH OBTAINED AFTER 96 HOURS, INCUBATION TO CONTINUE FOR 1 DAYS. 04/03/18 16:09 Blood - Peripheral Venous Blood Culture - Preliminary NO GROWTH OBTAINED AFTER 96 HOURS, INCUBATION TO CONTINUE FOR 1 DAYS. 04/03/18 23:05 Urine - Urine Clean Catch Urine Culture - Final NO GROWTH OBTAINED a/p suspect leukemoid reaction agree with urology eval for bilateral hydro ?biopsy of soft tissue mass d/w PMD continue to observe off antibiotics Problem List - Problems (1) Leukocytosis Code(s): D72.829 - ELEVATED WHITE BLOOD CELL COUNT, UNSPECIFIED Qualifiers: Leukocytosis type: leukemoid reaction Qualified Code(s): D72.823 - Leukemoid reaction (2) CHF exacerbation Code(s): I50.9 - HEART FAILURE, UNSPECIFIED Qualifiers: Heart failure type: combined systolic and diastolic Qualified Code(s): I50.43 - Acute on chronic combined systolic (congestive) and diastolic ( congestive) heart failure
[2018-04-08 16:46] LABS: INR 1.28 (0.82-1.09); PROTHROMBIN TIME (PATIENT) 14.5 SEC (9.7-13.0)
[2018-04-08 16:56] LABS: ANION GAP 8 (8-16); BLOOD UREA NITROGEN 87 mg/dL (7-18); CALCIUM 8.7 mg/dL (8.5-10.1); CHLORIDE 100 mmol/L (98-107); CO2 34 mmol/L (21-32); CREATININE 1.9 mg/dL (0.55-1.02); GLUCOSE,RANDOM 147 mg/dL (74-106); POTASSIUM 5.2 mmol/L (3.5-5.1); SODIUM 142 mmol/L (136-145)
[2018-04-08 20:16] VITALS: TEMP 98.6
--- NOTE | 2018-04-08 21:57 | PN ---
Progress Note (short form) - Note Progress Note: ~Addendum Spoke with son regarding issue of possible renal outflow compromise and the need to place a stent in order to open the forward flow of urine and to hopefully re-establish proper renal function given the findings on the imaging studies. Without doing so, the prognosis becomes very unfavorable as she faces outright renal failure; her medical condition is not likely to improve without surgical intervention of the kind described; thus we must accept the keaton-op risks; if any kind of chance for stabilization/recovery and for any further treatments that can be afforded to her. Problem List - Problems (1) CHF exacerbation Code(s): I50.9 - HEART FAILURE, UNSPECIFIED Qualifiers: Heart failure type: combined systolic and diastolic Qualified Code(s): I50.43 - Acute on chronic combined systolic (congestive) and diastolic ( congestive) heart failure (2) Leukocytosis Code(s): D72.829 - ELEVATED WHITE BLOOD CELL COUNT, UNSPECIFIED Qualifiers: Leukocytosis type: leukemoid reaction Qualified Code(s): D72.823 - Leukemoid reaction (3) Abdominal pain Code(s): R10.9 - UNSPECIFIED ABDOMINAL PAIN Qualifiers: Abdominal location: generalized Qualified Code(s): R10.84 - Generalized abdominal pain (4) Lipidemia Code(s): E78.5 - HYPERLIPIDEMIA, UNSPECIFIED Qualifiers: Hyperlipidemia type: unspecified Qualified Code(s): E78.5 - Hyperlipidemia , unspecified (5) Hypertension with renal disease Code(s): I12.9 - HYPERTENSIVE CHRONIC KIDNEY DISEASE W STG 1-4/UNSP CHR KDNY (6) Swallowing difficulty Code(s): R13.10 - DYSPHAGIA, UNSPECIFIED Qualifiers: Dysphagia type: unspecified Qualified Code(s): R13.10 - Dysphagia, unspecified (7) Candidiasis of mouth Code(s): B37.0 - CANDIDAL STOMATITIS
[2018-04-09 01:22] VITALS: BP 139/73; PULSE 105
--- NOTE | 2018-04-09 01:58 | HOSP ---
Physical Examination Vital Signs: Vital Signs Temperature 98.6 F 04/08/18 17:20 Pulse Rate 105 H 04/09/18 01:22 Respiratory Rate 36 H 04/09/18 01:22 Blood Pressure 139/73 04/09/18 01:22 O2 Sat by Pulse Oximetry (%) 93 L 04/08/18 21:00 Labs: CBC, BMP 04/08/18 06:15 04/08/18 15:35 Hospitalist Encounter Assessment: Was called to see pt because of rapid shallow breathing. Assessed pt at bedside. Pt tachypnic, tachycardic, mildly diaphoretic not responding to commands. She does track with eyes. Nurse states this is not her baseline. Pt afebrile with O2 sat 93, but tachypnic, tachycardic and in respiratory distress. Resident and attending were called. Workup was begun with plan for possible intubation and transfer to ICU. However, family was called. Pt's son was called and stated she should be DNR/DNI comfort measure. Lab orders as well as intubation and icu transfer were cancelled. Morphine drip was ordered at 0.05 mg/kg/hr titration. Visit type - Emergency Visit Emergency Visit: No - New Patient This patient is new to me today: Yes Date on this admission: 04/11/18 - Critical Care Critical Care patient: No
[2018-04-09] MEDS ORDERED: morphine SULFATE 4 MG/ML VIAL ONE (02:16)
[2018-04-09 02:18] LABS: ARTERIAL BLD GAS O2 SATURATION 91.1 % (90-98.9); ARTERIAL BLOOD GAS BASE EXCESS 0.1 meq/l (-2-2); ARTERIAL BLOOD GAS PO2 64.9 mmHg (68-100)
[2018-04-09 02:25] LABS: ALLENS TEST POSITIVE
[2018-04-09 02:26] LABS: ARTERIAL BLOOD GAS PCO2 89.7 mmHg (35-45); ARTERIAL BLOOD GAS pH 7.17 (7.35-7.45)
[2018-04-09] MEDS ORDERED: MORPHINE 100 MG in SODIUM CHLORIDE 98 ML IVPB SCH ×2 (02:30→02:57)
[2018-04-09] MEDS ORDERED: morphine CARPU-JECT 2 MG/1 ML DISP.SYRIN IVPUSH SCH (02:30)
--- NOTE | 2018-04-09 05:37 | HOSP ---
Physical Examination Vital Signs: Labs: CBC, BMP 04/08/18 06:15 04/08/18 15:35 Hospitalist Encounter Assessment: I was called to see the patient for unresponsiveness. On physical examination the patient didn't respond to verbal or physical stimuli. Absent heart and breath sounds. Absent peripheral pulses. Pupils are fixed and dilated. Corneal reflex was absent. The patient was pronounced at 5:10 AM. Family was notified, son was present at bedside. Visit type - Emergency Visit Emergency Visit: Yes ED Registration Date: 04/03/18 Care time: The patient presented to the Emergency Department on the above date and was hospitalized for further evaluation of their emergent condition. - New Patient This patient is new to me today: Yes Date on this admission: 04/09/18 - Critical Care Critical Care patient: No
== END 2018-04-09 07:10 | disposition expired | DRG 291 ==
LOC: JER 12:20 → JERBED 16:00 → J8W 18:44
PROVIDERS: ADMIT Internal Medicine; ATTEND Internal Medicine
DX: I13.0 Hypertensive heart and chronic kidney disease with heart failure and stage 1 through stage 4 chronic kidney disease, or unspecified chronic kidney disease (principal); I50.43 Acute on chronic combined systolic (congestive) and diastolic (congestive) heart failure; B37.0 Candidal stomatitis; N13.30 Unspecified hydronephrosis; E87.1 Hypo-osmolality and hyponatremia; N18.9 Chronic kidney disease, unspecified; D72.829 Elevated white blood cell count, unspecified; E78.5 Hyperlipidemia, unspecified; F41.8 Other specified anxiety disorders; R13.10 Dysphagia, unspecified; R10.9 Unspecified abdominal pain; M81.0 Age-related osteoporosis without current pathological fracture; D49.59 Neoplasm of unspecified behavior of other genitourinary organ
CPT/HCPCS: 36415; 36600; 71045-TC-FY; 71250-TC; 72192-TC; 74150-TC; 74230-TC-FY; 76705-TC; 76856-TC; 80048; 80053; 81003; 81015; 82550; 82803; 83615; 83735; 83880; 84155; 84165; 84443; 84484; 85025; 85027; 85610; 85651; 86140; 86304; 87040; 87086; 92611-GN; 93005; 93010; 97116-GP; 97162-GP; 99285-25